=== PATIENT | female | born 1935 | race Caucasian/White ===

== ENCOUNTER → 2018-08-16 | Outpatient (REF) | payer OTHER ==
[2018-08-16 17:17] LABS: C REACTIVE PROTEIN QUANTITATIV 4.86 MG/DL (0.00-0.30); RHEUMATOID FACTOR QUANT < 10.0 IU/ML (<15.0)
[2018-08-16 17:31] LABS: VITAMIN B12 LEVEL 946 PG/ML (247-911)
[2018-08-20 00:10] LABS: ANTINUCLEAR ANTIBODIES DIRECT Negative (Negative); Lyme Disease IgG/IgM Antibodie <0.91 ISR (0.00-0.90); Lyme Disease IgM Ab Quantitati <0.80 index (0.00-0.79)
== END ==
LOC: M LAB REF 16:35
DX: R53.1 Weakness (principal); R52 Pain, unspecified
CPT/HCPCS: 82607

== ENCOUNTER 2019-01-13 17:26 | Emergency (ER) | payer MEDICARE, OTHER ==
[~2019-01-13] VITALS: Ht 149.9 cm; Wt 38.6 kg
[2019-01-13 19:39] LABS: BASO % 0.6 % (0.0-1.0); EOS # 0.1 10^3/uL (0.0-0.50); EOS % 1.2 % (0.0-3.0); HEMATOCRIT 42.2 % (36.0-47.0); HEMOGLOBIN 12.8 g/dl (12.0-15.5); LYMPH # 1.3 10^3/uL (1.5-4.5); LYMPH % 25.7 % (24.0-44.0); MEAN CORPUSCULAR HEMOGLOBIN 27.4 pg (27.0-33.0); MEAN CORPUSCULAR HGB CONC 30.3 g/dl (32.0-36.5); MEAN CORPUSCULAR VOLUME 90.4 fl (80.0-96.0); MONO # 0.5 10^3/uL (0.0-0.8); MONO % 8.9 % (0.0-5.0); NEUTROPHILS # 3.3 10^3/uL (1.8-7.7); NEUTROPHILS % 63.4 % (36.0-66.0); PLATELET COUNT, AUTOMATED 299 10^3/uL (150-450); RED BLOOD COUNT 4.67 10^6/uL (4.00-5.40); WHITE BLOOD COUNT 5.2 10^3/uL (4.0-10.0)
[2019-01-13 20:04] LABS: ALBUMIN 3.8 GM/DL (3.2-5.2); ALT/SGPT 43 U/L (12-78); BILIRUBIN,DIRECT 0.1 MG/DL (0.0-0.2); BILIRUBIN,TOTAL 0.4 MG/DL (0.2-1.0); BLOOD UREA NITROGEN 48 MG/DL (7-18); CALCIUM LEVEL 9.1 MG/DL (8.8-10.2); CARBON DIOXIDE LEVEL 23 MEQ/L (21-32); CHLORIDE LEVEL 111 MEQ/L (98-107); CREATININE FOR GFR 0.66 MG/DL (0.55-1.30); GLOMERULAR FILTRATION RATE > 60.0 (>32); GLUCOSE, FASTING 122 MG/DL (70-100); LIPASE 262 U/L (73-393); POTASSIUM SERUM 4.4 MEQ/L (3.5-5.1); SODIUM LEVEL 141 MEQ/L (136-145); TOTAL PROTEIN 7.2 GM/DL (6.4-8.2)
[2019-01-13] MEDS: NS 1,000 ML IV SCH ×2 (21:28→23:28)
[2019-01-13 23:14] VITALS: BP 140/65
--- NOTE | 2019-01-14 10:17 | REP ---
Clinical: Abdominal pain and diarrhea. Technique: Single supine view of the abdomen and pelvis. Findings: Mild chronic dextroconvex scoliosis and degenerative changes to the visualized thoracolumbar spine. The bowel gas pattern is nonspecific. No organomegaly. Scattered vascular calcifications are identified along with suspected partially calcified fibroid within the pelvis. Impression: Chronic changes as above. Nonspecific bowel gas pattern. Electronically Signed by Ricardo Daniels MD 01/14/2019 10:08 A
== END 2019-01-14 00:25 | disposition home or self-care (01) ==
LOC: M ED 17:26
DX: E86.0 Dehydration (principal); R19.7 Diarrhea, unspecified; E11.9 Type 2 diabetes mellitus without complications; I10 Essential (primary) hypertension; E78.5 Hyperlipidemia, unspecified

== ENCOUNTER 2020-12-15 16:51 | Inpatient (IN) | payer MEDICARE ==
[~2020-12-15] VITALS: Ht 152.4 cm; Wt 50.0 kg
[2020-12-15] MEDS ORDERED: LIDOCAINE 2% 5ML JELLY UROJET TOP ONE (17:15)
[2020-12-15] MEDS ORDERED: ONDANSETRON 4MG/2ML VIAL IV ONE (17:15)
[2020-12-15] MEDS ORDERED: MORPHINE 2 MG/ML 1ML VIAL (J2270) IV ONE (17:15)
[2020-12-15] MEDS: NS 1,000 ML IV SCH (17:42)
[2020-12-15 17:44] LABS: BASO % 0.3 % (0.0-1.0); EOS # 0.1 10^3/uL (0.0-0.5); LYMPH % 17.6 % (24.0-44.0); MEAN CORPUSCULAR HGB CONC 31.6 g/dl (32.0-36.5); MEAN CORPUSCULAR VOLUME 88.6 fl (80.0-96.0); MONO # 0.5 10^3/uL (0.0-0.8); MONO % 7.7 % (2.0-8.0); NEUTROPHILS # 4.2 10^3/uL (1.5-8.5); PLATELET COUNT, AUTOMATED 261 10^3/uL (150-450); RED BLOOD COUNT 4.29 10^6/uL (4.00-5.40); WHITE BLOOD COUNT 5.9 10^3/uL (4.0-10.0)
[2020-12-15 17:54] LABS: INR 0.9; PROTHROMBIN TIME 12.3 SECONDS (12.5-14.3)
[2020-12-15] MEDS ORDERED: OMEP40CA97 PO (17:57)
[2020-12-15] MEDS ORDERED: METF-839 PO (17:57)
[2020-12-15] MEDS ORDERED: K-TA10TA2 PO (17:57)
--- NOTE | 2020-12-15 18:10 | REP ---
INDICATION: fall. COMPARISON: None. TECHNIQUE: AP and lateral views of the right femur. FINDINGS: AP and lateral views of the right femur demonstrate normal bones, joints, and soft tissues. No fracture or subluxation is seen. No opaque foreign body noted. IMPRESSION: Negative right femur series. <Electronically signed by Dylan Chatman > 12/15/20 [id number]
--- NOTE | 2020-12-15 18:12 | REP ---
INDICATION: INCLUDE PELVIS TRAUMA. COMPARISON: Comparison KUB study January 13, 2019.. TECHNIQUE: AP view of the pelvis and AP and cross-table lateral views of the right hip are presented. FINDINGS: The bony pelvic ring is intact. There is mild degenerative sclerosis in the symphysis unchanged. No sacral or pelvic fracture is appreciated. The left hip appears intact. Views of the right hip demonstrate a slightly impacted cervical neck fracture of the right proximal femur. IMPRESSION: Impacted right femoral neck fracture. No pelvic fracture seen. <Electronically signed by Dylan Chatman > 12/15/20 1964
--- NOTE | 2020-12-15 18:13 | REP ---
INDICATION: PREOP. COMPARISON: Comparison chest x-ray January 10, 2008. TECHNIQUE: Portable supine AP view of the chest.. FINDINGS: The lungs are well inflated and free of infiltrate. Pleural angles are sharp. Heart size is normal. Pulmonary vasculature is not increased. Monitoring electrodes are seen. There is a zone of mild linear platelike atelectasis in the left base. The thoracic aorta is somewhat tortuous. No acute bony abnormality. IMPRESSION: Mild platelike atelectasis left base. Otherwise no acute disease.. <Electronically signed by Dylan Chatman > 12/15/20 [id number]
[2020-12-15 18:14] LABS: BLOOD UREA NITROGEN 30 MG/DL (7-18); CARBON DIOXIDE LEVEL 29 MEQ/L (21-32); CHLORIDE LEVEL 105 MEQ/L (98-107); CK-MB VALUE MASS 1.5 NG/ML (<3.6); CPK CREATINE PHOSPHOKINASE 52 U/L (26-192); CREATININE FOR GFR 0.58 MG/DL (0.55-1.30); GLOMERULAR FILTRATION RATE > 60.0 (>32); GLUCOSE, FASTING 153 MG/DL (70-100); MB/CK RELATIVE INDEX 2.88 (< OR =4); POTASSIUM SERUM 3.9 MEQ/L (3.5-5.1); SODIUM LEVEL 140 MEQ/L (136-145)
--- NOTE | 2020-12-15 18:15 | REP ---
INDICATION: distention. COMPARISON: Comparison KUB January 13, 2019.. TECHNIQUE: AP supine view of the abdomen and pelvis. FINDINGS: A impacted fracture of the right femoral neck is noted. No pelvic or lumbar spine fracture is seen. There is a mild dextroconvex lumbar spine curvature unchanged. Degenerative disc and facet changes are noted in the lumbar spine. No other acute bony abnormality is seen. There is air and stool in a nondistended colon. No evidence of bowel obstruction is seen. Flank stripes are intact. Psoas margins are symmetric. There are calcifications in the left central pelvis consistent with calcified uterine fibroids. These are unchanged. IMPRESSION: Unremarkable bowel gas pattern. No evidence of obstruction or mass. Right femoral neck fracture with impaction <Electronically signed by Dylan Chatman > 12/15/20 [id number]
[2020-12-15] MEDS ORDERED: METOPROLOL TART 50 MG TAB PO ONE (18:35)
[2020-12-15] MEDS ORDERED: SITA50TAB PO (18:37)
[2020-12-15] MEDS ORDERED: ARTH650T23 PO (18:37)
[2020-12-15] MEDS ORDERED: ASPI81TA26 PO (18:37)
[2020-12-15] MEDS ORDERED: LOSA50TA88 PO (18:37)
[2020-12-15] MEDS ORDERED: METO50TA7 PO (18:37)
[2020-12-15] MEDS ORDERED: VOLT1GEL15 TOP (18:52)
[2020-12-15] MEDS ORDERED: LABETALOL 100MG/20ML VIAL IV STA (19:29)
[2020-12-15] MEDS ORDERED: MORPHINE 2 MG/ML 1ML VIAL (J2270) IV PRN (19:30)
[2020-12-15 20:46] LABS: RSV AMPLIFICATION NEGATIVE (NEGATIVE)
[2020-12-15] MEDS ORDERED: MOM 30ML SUSPENSION UDC PO PRN (21:10)
[2020-12-15] MEDS ORDERED: ACETAMINOPHEN TAB 650MG DOSE (2X325MG) PO PRN (21:10)
[2020-12-15] MEDS ORDERED: MAALOX 30 ML SUSP *UDC PO PRN (21:10)
--- NOTE | 2020-12-15 21:34 | HPEPDOC ---
[facility] Medical History & Physical Date of Admission Dec 15, 2020 Date of Service: Dec 15, 2020 History and Physical CHIEF COMPLAINT: Right hip pain HISTORY OF PRESENT ILLNESS: 85-year-old female history of hypertension and diabetes who had a mechanical fall at home tripping down stairs was found to have a right hip fracture. Orthopedic surgery was consulted from the emergency department who will see the patient in the morning. Patient complains of right hip discomfort and cannot move very well she otherwise feels well denying shortness of breath or chest pain no abdominal pain no nausea or vomiting. Daughter at bedside Yari [phone]. At baseline patient does not require walking assistive devices. PAST MEDICAL/SURGICAL HISTORY: Coq-iokgvyb-jxeqidqau diabetes Hypertension Cholecystectomy SOCIAL HISTORY: Denies alcohol use Denies tobacco use Denies illicit drug use Lives in senior assisted housing FAMILY HISTORY: Reviewed and none contributory to this admission ALLERGIES: Please see below. REVIEW OF SYSTEMS: 10 point review of systems complete all negative otherwise stated in HPI HOME MEDICATIONS: Please see below. PHYSICAL EXAMINATION: Constitutional: Awake and alert, in no apparent distress ENT: Sclera are clear. Mucosa is moist. Respiratory: Lungs CTA bilaterally. No respiratory distress. Cardiovascular: RRR S1 and S2 are normal Gastrointestinal: Abdomen is soft, non distended, non tender, BS present. Musculoskeletal: No lower extremity edema. Limited motion at hips. Right hip te nderness. Neurologic: No focal neurological deficit. Mental Status: A&O x3, normal affect Skin: Warm, dry LABORATORY DATA: See below. IMAGING: See chart MICROBIOLOGY: Please see below. ASSESSMENT/PLAN 85-year-old female history of hypertension and diabetes who had a mechanical fall at home tripping down stairs was found to have a right hip fracture. Orthopedic surgery was consulted from the emergency department who will see the patient in the morning. # Right hip fracture: Resulting from mechanical fall. Evaluation by orthopedic surgery in the morning. PT/OT after. Pain control Tylenol, morphine IV PRN for breakthrough. Fall precautions. # Hypertension: Continue home meds. Monitor and titrate # DM: ISS. Frequent Accu-Cheks. Hypoglycemic precautions. # DVT prophylaxis: Heparin A Yousef Hospitalist Vital Signs Vital Signs Date Time Temp Pulse Resp B/P (MAP) Pulse Ox O2 Delivery O2 Flow Rate FiO2 12/15/20 20:29 16 12/15/20 20:16 84 98 12/15/20 20:01 Nasal Cannula 2.0 12/15/20 20:00 167/81 (109) 12/15/20 17:42 95 12/15/20 17:12 97.7 Laboratory Data Labs 24H Laboratory Tests 2 12/15/20 17:29: Immature Granulocyte % (Auto) 1.4, Neutrophils (%) (Auto) 71.0H, Lymphocytes (%) (Auto) 17.6L, Monocytes (%) (Auto) 7.7, Eosinophils (%) (Auto) 2.0, Basophils (%) (Auto) 0.3, Neutrophils # (Auto) 4.2, Lymphocytes # (Auto) 1.0L, Monocytes # (Auto) 0.5, Eosinophils # (Auto) 0.1, Basophils # (Auto) 0.0, Nucleated Red Blood Cells % (auto) 0.0, Prothrombin Time 12.3, Prothromb Time International Ratio 0.90, Anion Gap 6L, Glomerular Filtration Rate > 60.0, Calcium Level 9.0, Total Creatine Kinase 52, Creatine Kinase MB 1.5, Creatine Kinase MB Relative Index 2.88 12/15/20 19:58: Coronavirus (COVID-19)(PCR) NEGATIVE, Influenza Type A (RT-PCR) NEGATIVE, Influenza Type B (RT-PCR) NEGATIVE, Respiratory Syncytial Virus (PCR) NEGATIVE CBC/BMP Laboratory Tests 12/15/20 17:29 Home Medications Scheduled Aspirin (Aspirin EC) 81 Mg Tablet.dr, 81 MG PO DAILY Losartan Potassium (Losartan Potassium) 50 Mg Tablet, 50 MG PO DAILY Metformin HCl (Metformin HCl) 500 Mg Tablet, 500 MG PO BID Metoprolol Tartrate (Metoprolol Tartrate) 50 Mg Tablet, 50 MG PO Q8H Omeprazole (Omeprazole) 40 Mg Capsule.dr, 40 MG PO DAILY Potassium Chloride (K-Tab ER) 10 Meq Tablet.er, 10 MEQ PO BID Sitagliptin (Januvia) 50 Mg Tablet, 50 MG PO DAILY Scheduled PRN Acetaminophen (Arthritis Pain) 650 Mg Tablet.er, 650 MG PO Q8H PRN for PAIN Diclofenac Sodium (Voltaren) 100 Gm Gel..gram., 1 GRAM TOP QID PRN for PAIN APPLY TO SHOULDER PRN Allergies Coded Allergies: No Known Allergies (Unverified , 01/13/19) A-FIB/CHADSVASC A-FIB History Current/History of A-Fib/PAF?: No YOUSEF,TRICIA Williamson MD Dec 15, 2020 21:34
[2020-12-15] MEDS ORDERED: GLUCAGON INJ 1MG VIAL SC PRN (21:35)
[2020-12-15] MEDS ORDERED: GLUCOSE 4GM CHEW TABLET PO PRN (21:35)
[2020-12-15] MEDS ORDERED: DEXTROSE 50% 50 ML SYRINGE IV PRN (21:35)
[2020-12-15 22:30] VITALS: BP 183/91
[2020-12-15] MEDS: DOCUSATE SODIUM 100MG CAPSULE PO SCH (22:57)
[2020-12-15] MEDS: POTASSIUM CHLORIDE 10 MEQ SR TABLET PO SCH (22:58)
[2020-12-16] VITALS (9 sets, daily range): BP systolic 148–201; BP diastolic 75–100
[2020-12-16] MEDS: HumaLOG INSULIN (NovoLOG) PER UNIT SC SCH ×5 (00:20→22:14)
[2020-12-16] MEDS: NS 1,000 ML IV SCH ×2 (03:09→13:04)
--- NOTE | 2020-12-16 03:34 | ECGEPIP ---
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
[2020-12-16] MEDS ORDERED: MORPHINE 2 MG/ML 1ML VIAL (J2270) IV ONE (03:35)
[2020-12-16] MEDS ORDERED: PERCOCET 5MG/325MG TAB PO PRN ×3 (03:35→20:45)
[2020-12-16] MEDS: METOPROLOL TART 50 MG TAB PO SCH ×3 (05:39→22:00)
[2020-12-16 07:07] LABS: HEMATOCRIT 34.9 % (36.0-47.0); HEMOGLOBIN 10.7 g/dl (12.0-15.5); MEAN CORPUSCULAR HEMOGLOBIN 27.1 pg (27.0-33.0); MEAN CORPUSCULAR HGB CONC 30.7 g/dl (32.0-36.5); MEAN CORPUSCULAR VOLUME 88.4 fl (80.0-96.0); PLATELET COUNT, AUTOMATED 218 10^3/uL (150-450); RED BLOOD COUNT 3.95 10^6/uL (4.00-5.40); WHITE BLOOD COUNT 6.6 10^3/uL (4.0-10.0)
[2020-12-16 07:33] LABS: ALBUMIN 2.9 GM/DL (3.2-5.2); ALT/SGPT 32 U/L (12-78); BILIRUBIN,TOTAL 0.4 MG/DL (0.2-1.0); BLOOD UREA NITROGEN 17 MG/DL (7-18); CALCIUM LEVEL 8.3 MG/DL (8.8-10.2); CARBON DIOXIDE LEVEL 30 MEQ/L (21-32); CHLORIDE LEVEL 107 MEQ/L (98-107); CREATININE FOR GFR 0.53 MG/DL (0.55-1.30); GLOMERULAR FILTRATION RATE > 60.0 (>32); GLUCOSE, FASTING 151 MG/DL (70-100); MAGNESIUM LEVEL 1.9 MG/DL (1.8-2.4); POTASSIUM SERUM 4.1 MEQ/L (3.5-5.1); SODIUM LEVEL 141 MEQ/L (136-145); TOTAL PROTEIN 6.1 GM/DL (6.4-8.2)
--- NOTE | 2020-12-16 08:38 | IPNPDOC ---
Subjective Date Seen The patient was seen on 12/16/20. Subjective Chief Complaint/HPI Subjective: Patient was seen at the side alert, oriented 3. Patient states that she has pain on the right hip experiencing some numbness associated with it. Objective: PHYSICAL EXAMINATION: Constitutional: Awake and alert, in no apparent distress ENT: Sclera are clear. Mucosa is moist. Respiratory: Lungs CTA bilaterally. No respiratory distress. Cardiovascular: RRR S1 and S2 are normal Gastrointestinal: Abdomen is soft, non distended, non tender, BS present. Musculoskeletal: No lower extremity edema. Limited motion at hips. Right hip tenderness Neurologic: No focal neurological deficit. Mental Status: A&O x3, normal affect Skin: Warm, dry LABORATORY DATA: See below. IMAGING: See chart MICROBIOLOGY: Please see below. ASSESSMENT & PLAN: 85-year-old female history of hypertension and diabetes who had a mechanical fal l at home tripping down stairs was found to have a right hip fracture. Orthopedic surgery was consulted from the emergency department who will see the patient in the morning. # Right hip fracture sustained from mechanical fall - Ortho evaluation and surgery this morning - surgery scheduled for 2pm today - Pain control Tylenol, morphine IV PRN for breakthrough - Fall precautions # Hypertension -Continue home meds. Monitor and titrate # DM -ISS. Frequent Accu-Checks. Hypoglycemic precautions DVT prophylaxis: Heparin GI ppx: none Fluids: none Diet: NPO for surgery Code status: Full Disposition: surgery per ortho at 2pm today. And PT/OT eval and treat after surgery. Will need ARU screen and placement. Assessment /Plan Plan/VTE VTE Prophylaxis Ordered?: Yes (scd teds) VS, I&O, 24H, Fishbone Vital Signs/I&O Vital Signs Date Time Temp Pulse Resp B/P (MAP) Pulse Ox O2 Delivery O2 Flow Rate FiO2 12/16/20 06:00 98.1 76 17 169/77 (107) 98 Nasal Cannula 2.0 12/15/20 17:42 95 I&O- Last 24 Hours up to 6 AM 12/16/20 06:00 Intake Total 500 ml Output Total 1150 ml Balance -650 ml Laboratory Data 24H LABS Laboratory Tests 2 12/15/20 17:29: Immature Granulocyte % (Auto) 1.4, Neutrophils (%) (Auto) 71.0H, Lymphocytes (%) (Auto) 17.6L, Monocytes (%) (Auto) 7.7, Eosinophils (%) (Auto) 2.0, Basophils (%) (Auto) 0.3, Neutrophils # (Auto) 4.2, Lymphocytes # (Auto) 1.0L, Monocytes # (Auto) 0.5, Eosinophils # (Auto) 0.1, Basophils # (Auto) 0.0, Nucleated Red Blood Cells % (auto) 0.0, Prothrombin Time 12.3, Prothromb Time International Ratio 0.90, Anion Gap 6L, Glomerular Filtration Rate > 60.0, Calcium Level 9.0, Total Creatine Kinase 52, Creatine Kinase MB 1.5, Creatine Kinase MB Relative Index 2.88 12/15/20 19:58: Coronavirus (COVID-19)(PCR) NEGATIVE, Influenza Type A (RT-PCR) NEGATIVE, Influenza Type B (RT-PCR) NEGATIVE, Respiratory Syncytial Virus (PCR) NEGATIVE 12/16/20 00:12: Bedside Glucose (Misc Panel) 140H 12/16/20 05:40: Bedside Glucose (Misc Panel) 138H 12/16/20 06:28: Nucleated Red Blood Cells % (auto) 0.0, Anion Gap 4L, Glomerular Filtration Rate > 60.0, Calcium Level 8.3L, Magnesium Level 1.9, Total Bilirubin 0.4, Aspartate Amino Transf (AST/SGOT) 24, Alanine Aminotransferase (ALT/SGPT) 32, Alkaline Phosphatase 79, Total Protein 6.1L, Albumin 2.9L, Albumin/Globulin Ratio 0.9L CBC/BMP Laboratory Tests 12/15/20 17:29 12/16/20 06:28 GME ATTESTATION GME ATTESTATION My faculty preceptor for this patient encounter was physically present during the encounter and was fully available. All aspects of the patient interview, exa mination, medical decision making process, and medical care plan development were reviewed and approved by the faculty preceptor. The faculty preceptor is aware and concurs with the plan as stated in the body of this note and will attest to such by his/her cosignature. ATTENDING NOTE The above note was written by Dr. Michelle Mcqueen DO. I, Shama Sebastian, have independently examined this patient and performed my own physical exam, as well as reviewed the documentation and edited where necessary. I have discussed in detail with the resident / student the findings and plan of treatment as documented by the resident / student and edited their note. I agree with their findings and treatment plan and have edited their documentation. I will continue to follow the patient during this hospital stay. Discussed with patient about her prior level of activity before fall - Had mentioned that she has gone up and down flights of stairs without any difficulty - No prior histories of heart attacks or strokes - Is independent at baseline without any assistive devices Patient is medically optimized at low risk for a low risk procedure Michelle Mcqueen DO Dec 16, 2020 07:44 SHAMA SEBASTIAN MD Dec 16, 2020 08:37
[2020-12-16] MEDS: ASPIRIN 81MG ENTERIC TABLET PO SCH (09:00)
[2020-12-16] MEDS ORDERED: HEPARIN SOD (PORCINE) 5000UNITS/ML 1ML VIAL/SYRINGE SC SCH (09:00)
[2020-12-16] MEDS: DOCUSATE SODIUM 100MG CAPSULE PO SCH (09:52)
[2020-12-16] MEDS: POTASSIUM CHLORIDE 10 MEQ SR TABLET PO SCH ×2 (09:53→21:00)
[2020-12-16] MEDS: OMEPRAZOLE 20 MG CAP PO SCH (09:53)
[2020-12-16] MEDS: LOSARTAN 50MG TABLET PO SCH (09:56)
--- NOTE | 2020-12-16 12:43 | CR.PDOC ---
General Date of Consultation: Dec 15, 2020 Referring Provider: DIEGO SEBASTIAN MD Attending Physician: DIEGO SEBASTIAN MD Consultation REASON FOR CONSULTATION/CHIEF COMPLAINT: Right hip subcapital fracture. HISTORY OF PRESENT ILLNESS: The patient reportedly had a mechanical fall at home. She states that she was standing outside of a door when a contractor, who is doing renovations at her apartment open the door causing her to fall. She had complaints of right hip pain. The patient denies any previous hip pain and was not utilizing any ambulatory aids prior to the fall. ALLERGIES: Please see below. HOME MEDICATIONS: Please see below. PAST MEDICAL HISTORY: 1., Diabetes. 2., Hypertension. PAST SURGICAL HISTORY: 1., Cholecystectomy FAMILY HISTORY: Noncontributory SOCIAL HISTORY: Marital status and/or living arrangements: Lives in senior assisted housing apartment Children: Daughter Yari. At [phone] Tobacco use: Denies ETOH: Denies Illicit drug use: Denies REVIEW OF SYSTEMS: Negative aside from those described in the HPI PHYSICAL EXAMINATION: VITAL SIGNS: Please see below. The patient is alert and oriented to person, place and time. Constitutional: The patient appears their stated age. They are casually dressing, comfortable and cooperative, in no acute distress. Psychiatric: Appropriate affect with good eye contact. Ambulation: Nonambulatory secondary to fracture of right hip Head, ears, eyes, nose, and throat: Head is normocephalic, atraumatic. Eyes: Pupils equal. Sclerae anicteric. Mouth: Not assessed due to covert masking Neck: Supple with full range of motion. Skin: Clean, dry, and intact with no abrasions or ulcerations. Lungs: Breathing is unlabored with symmetric chest expansion on inspiration. Cardiovascular: Palpable posterior tibialis pulses, bilaterally. Neurologic: 5/5 strength, bilaterally to the tibialis anterior, EHL and gastrocsoleus. Sensation is intact to light touch in the L4-S1 dermatome distribution, bilaterally Musculoskeletal: The right lower extremity is held in a shortened and externally rotated position consistent with the right hip fracture. The physical examination was limited secondary to pain and discomfort. X-ray: X-ray imaging was independently reviewed by myself. This demonstrated the right hip with a subcapital fracture, completely displaced. LABORATORY DATA: Please see below. ASSESSMENT/PLAN: 1. Patient demonstrates a right hip subcapital fracture. The recommended treatment for this would be a hemiarthroplasty procedure. Given the fact that the patient does not have any significant signs or history of osteophytic change. The right hip. I spent greater than 30 minutes discussing the risks and benefits of the procedure with the patient and I also spoke to the patient's daughter, twice on the phone during this period of time. The patient was quite anxious about moving forward with surgery. However, after discussion of the risks and benefits, she has consented to the right hip hemiarthroplasty procedure, as well as a blood transfusion if needed. The risks of the procedure include but are not limited to infection, blood loss, periprosthetic fracture, need for additional surgery, damage to local soft tissues tissue structures, DVT, or PE, need for possible use of ambulatory aids in the future due to d econditioning. The risks of the procedure involved anesthetic risks which include but are not limited to, heart attack, stroke and . Again, the patient did discuss the procedure with her daughter and decided that she did not continue in the position where she was in pain and unable to mobilize and thus consented for surgery. The patient has been medically optimized for surgery. She has been booked for right hip hemiarthroplasty which will hopefully done this afternoon barring any emergency procedures. Vital Signs/I&O Vital Signs Date Time Temp Pulse Resp B/P (MAP) Pulse Ox O2 Delivery O2 Flow Rate FiO2 12/16/20 10:53 2.0 12/16/20 09:56 156/76 12/16/20 08:31 97.2 70 14 99 Nasal Cannula 12/15/20 17:42 95 I&O- Last 24 Hours up to 6 AM 12/16/20 05:59 Intake Total 500 ml Output Total 900 ml Balance -400 ml Laboratory Data Labs 24H Laboratory Tests 2 12/15/20 17:29: Immature Granulocyte % (Auto) 1.4, Neutrophils (%) (Auto) 71.0H, Lymphocytes (%) (Auto) 17.6L, Monocytes (%) (Auto) 7.7, Eosinophils (%) (Auto) 2.0, Basophils (%) (Auto) 0.3, Neutrophils # (Auto) 4.2, Lymphocytes # (Auto) 1.0L, Monocytes # (Auto) 0.5, Eosinophils # (Auto) 0.1, Basophils # (Auto) 0.0, Nucleated Red Blood Cells % (auto) 0.0, Prothrombin Time 12.3, Prothromb Time International Ratio 0.90, Anion Gap 6L, Glomerular Filtration Rate > 60.0, Calcium Level 9.0, Total Creatine Kinase 52, Creatine Kinase MB 1.5, Creatine Kinase MB Relative Index 2.88 12/15/20 19:58: Coronavirus (COVID-19)(PCR) NEGATIVE, Influenza Type A (RT-PCR) NEGATIVE, Influenza Type B (RT-PCR) NEGATIVE, Respiratory Syncytial Virus (PCR) NEGATIVE 12/16/20 00:12: Bedside Glucose (Misc Panel) 140H 12/16/20 05:40: Bedside Glucose (Misc Panel) 138H 12/16/20 06:28: Nucleated Red Blood Cells % (auto) 0.0, Anion Gap 4L, Glomerular Filtration Rate > 60.0, Calcium Level 8.3L, Magnesium Level 1.9, Total Bilirubin 0.4, Aspartate Amino Transf (AST/SGOT) 24, Alanine Aminotransferase (ALT/SGPT) 32, Alkaline Phosphatase 79, Total Protein 6.1L, Albumin 2.9L, Albumin/Globulin Ratio 0.9L CBC/BMP Laboratory Tests 12/15/20 17:29 12/16/20 06:28 Allergies Coded Allergies: No Known Allergies (Unverified , 01/13/19) Home Medications Scheduled Aspirin (Aspirin EC) 81 Mg Tablet.dr, 81 MG PO DAILY, (Reported) Insulin Human Lispro (Humalog) 100 Unit/1 Ml Vial, 0 UNITS SC ACHS for 30 Days, #30 Losartan Potassium (Losartan Potassium) 50 Mg Tablet, 50 MG PO DAILY, (Reported) Metoprolol Tartrate (Metoprolol Tartrate) 50 Mg Tablet, 50 MG PO Q8H, (Reported) Omeprazole (Omeprazole) 40 Mg Capsule.dr, 40 MG PO DAILY, (Reported) Potassium Chloride (K-Tab ER) 10 Meq Tablet.er, 10 MEQ PO BID, (Reported) Rivaroxaban (Xarelto) 10 Mg Tablet, 10 MG PO DAILY@18 for 30 Days, #30 Scheduled PRN Acetaminophen (Arthritis Pain) 650 Mg Tablet.er, 650 MG PO Q8H PRN for PAIN, (Reported) Diclofenac Sodium (Voltaren) 100 Gm Gel..gram., 1 GRAM TOP QID PRN for PAIN, (Reported) APPLY TO SHOULDER PRN LETTY WILKES MD Dec 16, 2020 12:43
[2020-12-16] MEDS ORDERED: ceFAZolin 2 GM/D5W 50 ML IV BAG (J0690 PER 500MG) As Ordered ONE (17:17)
[2020-12-16] MEDS ORDERED: TRANEXAMIC ACID 100 MG/ML 10ML VIAL As Ordered ONE (17:18)
[2020-12-16] MEDS ORDERED: fentaNYL 100 MCG/2 ML INJECTION (J3010) As Ordered ONE (17:20)
[2020-12-16] MEDS ORDERED: KETAMINE HCL 200 MG/20 ML VIAL As Ordered ONE (17:20)
[2020-12-16] MEDS ORDERED: LIDOCAINE 2% 100MG/5ML SDV (FOR ANES.) As Ordered ONE (17:20)
[2020-12-16] MEDS ORDERED: propofoL 200 MG/20 ML VIAL As Ordered ONE (17:20)
[2020-12-16] MEDS ORDERED: MIDAZOLAM INJ 2MG/2ML VIAL (J2250 PER 1MG) As Ordered ONE (17:20)
[2020-12-16] MEDS ORDERED: ONDANSETRON 4MG/2ML VIAL As Ordered ONE (17:20)
[2020-12-16] MEDS ORDERED: BUPIVACAINE/EPIN 0.5% 30 ML VIAL As Ordered ONE (18:03)
[2020-12-16] MEDS ORDERED: ePHEDrine SULFATE 25 MG/5 ML(5MG/ML) SYRINGE As Ordered ONE (18:19)
[2020-12-16] MEDS ORDERED: LR 1,000 ML IV SCH ×2 (20:45→20:55)
[2020-12-16] MEDS ORDERED: ONDANSETRON 4MG/2ML VIAL IV PRN ×2 (20:45→20:55)
[2020-12-16] MEDS ORDERED: METOCLOPRAMIDE INJ 10MG/2ML VIAL (J2765 PER 1) IV PRN (20:45)
[2020-12-16] MEDS ORDERED: fentaNYL 100 MCG/2 ML INJECTION (J3010) IV PRN (20:45)
[2020-12-16] MEDS ORDERED: oxyCODONE 5MG TAB PO PRN ×2 (20:55)
[2020-12-16] MEDS: SENOKOT S TAB PO SCH (21:00)
--- NOTE | 2020-12-16 21:11 | ROOPDOC ---
[facility] Report Of Operation Report of Operation DATE OF PROCEDURE: 12/16/20 PREPROCEDURE DIAGNOSES: Right hip femoral neck fracture. POSTPROCEDURE DIAGNOSES: Right hip femoral neck fracture. PROCEDURE: Right hip hemiarthroplasty. SURGEON: Van Wilkes MD TIE UP WORKER: Nika Caicedo CST ANESTHESIA: Spinal. ESTIMATED BLOOD LOSS: Approximately less than 100 mL mL. COMPLICATIONS: No known complications. Components: [place] accolade II stem size #2 with 132 angle. Size 42 monoblock femoral head with +4 neck insert PROCEDURE NOTE: The patient was diagnosed with a right hip hemiarthroplasty fr [facility]. I spoke with the patient and her daughter this morning and the patient signed consent for the right hip hemiarthroplasty as well as blood transfusion. Prior to surgery, the anesthesiologist had to speak to the patient's daughter regarding consent for anesthesia. Because the patient was having an episode of confusion, which the daughter confirms she sometimes had in the evenings as reported by the anesthesiologist. The nursing staff asked me to confirm the consent with the patient's daughter, which had been signed by the patient earlier today. This was done and witnessed. DESCRIPTION OF PROCEDURE: The patient was seen in the preoperative area and the right hip was marked. The patient is brought to the operating room and after a surgical pause, a spinal anesthetic was completed. The patient was then placed in the left lateral decubitus position on the bed with appropriate padding and an axillary roll utilizing the [facility] frame positioner. The right lower extremity was prepped with chlorhexidine scrub followed by 2 alcohol 4 x 4 soaked pads and a urgent peroxide pad. 2. Chlorhexidine cleanses with the prepacked ones were then carried out. The right lower extremity was then prepped and draped in the normal sterile fashion for an anterior lateral modified Chow approach. The patient received 2 g of Ancef IV prior to incision as well as 1 g of IV tranexamic acid. A surgical safety checklist, and possible was carried out. The site of the surgery. Incision was marked and the incision was carried out after the surgical safety checklist. This was carried down through skin and subcutaneous tissue laterally, centered over the proximal portion of the GT. Once the fascia was reached. A Peoples was used to clear some of the fat off of the fascia. The cautery was used to make a 1 cm incision through the fascia. The leg was abducted and cautery and Russo scissors were used to split the fascia. The hip greater trochanter and abductors were then visualized. A small Charnley was placed help with retraction. The skin incision was lengthened as appropriate for appropriate visualization. Electrocautery was used for hemostasis throughout the procedure. The lateral Chow approach was continued through a split of the gluteus medius, minimus and capsule in one continuous layer. This was carried out until appropriate visualization of the fracture site was noted. Retractors were placed on either side of the femoral neck and the sagittal saw was used to freshen up the neck cut approximately 1 cm above the lesser trochanteric region. The leg was externally rotated and the proximal capsule was split avoiding injury to the acetabular labrum. The femoral head was identified. A corkscrew was introduced into the femoral head, just using arm strength without a mallet. After a few attempts, I was able to remove the femoral head in one piece. This was sized to be an approximate 41 or 42 mm in diameter. The acetabulum was irrigated with normal sterile saline and a rongeur was used to remove any soft tissue containing bony fragments. Size 41 and 42 mm diameter heads were tested and the 42 mm diameter head appeared to have greater fit and suction within the acetabulum. The femur was then externally rotated with the foot placed in the bag to allow access to the proximal greater trochanteric region. Electrocautery was utilized to remove some soft tissue from the posterior lateral aspect of the greater trochanter and the washer as well as a box osteotome were used to open up the femoral canal. The canal finder device was advanced on hand power. A size 0 broach was then placed. The broach was used to remove the posterior lateral region of the greater trochanter. The broach found its appropriate channel and version as it was advanced gently. Broaching was continued up to a size 2 femoral stem. Trialing with the 132 neck was utilized as the patient's measured on x-ray, albeit with some external rotation was approximately 139. This was trialed with the standard neck length. There appeared to be some shock. So this was increased to the +4 neck length. The +8 neck length was also trialed, however, this was too tight and unable to be reduced. The +4 neck length was chosen and trialed. This appeared to provide the patient with good stability. With all of the retracting devices removed. There was no significant shuck and the patient demonstrated a full stable range of motion. There is no obvious instability except with the leg in extension and extreme external rotation. This maneuver was used to dislocate the hip with the assistance of a bone hook. The trial components were removed. The acetabulum was again irrigated. The accolade size 2 stem was impacted without any obvious signs of femoral fracture or splitting or otherwise. The +4 femoral head monoblock head was trialed again and this was found to have a good fit. The final component, +4 femoral neck was impacted, followed by impaction of the monoblock head onto this neck component. The femoral neck was irrigated and dried prior to impaction of the neck and head prostheses. The hip was reduced and found to be in good stable condition. The leg lengths appeared to be appropriate based on anatomic landmarks. 2 g of topical tranexamic acid was introduced into the wound with the addition of saline and Betadine mixture and allowed to sit for 3 minutes. Approximately 30 mL of 0.5% Marcaine with epinephrine was then injected into the soft tissues and posterior capsular region. The wound was then irrigated after the 3 minutes soak. Wound closure began with the capsule which was closed with #1 Vicryl. The minimus and medius were then closed with interrupted #1 Vicryl followed by a 0 strata fix suture. The fascia was then closed with interrupted #1 Vicryl followed by a running 0 strata fix suture. The wound was irrigated with normal sterile saline between layers. The skin and subcutaneous tissue was closed with interrupted #1 undyed Vicryl followed by a running 2. 0 Vicryl and a running 3.0 antibacterial Monocryl suture. Steri-Strips were then placed followed by an OptiFoam dressing. The patient tolerated the procedure well. Her anesthetic was reversed and she was transferred to her bed and taken to the recovery room where a low set AP pelvis x-ray was completed. This demonstrated that the right hip hemiarthroplasty was in position with relatively appropriately matched leg lengths. The patient will likely require rehabilitation. The x-ray imaging did not demonstrate any obvious signs of periprosthetic fracture. Otherwise, she may be weightbearing as tolerated. She is to avoid external rotation of her foot and I have asked that some pillows be placed to the right side lateral side of her leg to avoid excess external rotation. She should also have a pillow between her knees to avoid crossing her legs. She'll be evaluated by physical therapy and reassess by the hospitalist team postoperatively. She'll be followed up in the office for her 2 week postoperative appointment with repeat x-ray imaging. Thank you very much for referring this patient to my care, This document contains text that was generated through computerized voice- recognition software. Despite it being proofread, undetected computer-generated errors may exist. Please contact our office at [phone] if any clarification or correction is required. VAN WILKES MD Dec 16, 2020 21:11
--- NOTE | 2020-12-16 21:26 | REPVR ---
PROCEDURE INFORMATION: Exam: XR Pelvis Exam date and time: 12/16/2020 8:44 PM Age: 85 years old Clinical indication: Other: S/P right hip hemiarthoplasty TECHNIQUE: Imaging protocol: XR pelvis. Views: 1 or 2 view. COMPARISON: CO Hip,AP,LAT to include Pelvis RIGHT 12/15/2020 5:27 PM FINDINGS: Bones/joints: Right hip arthroplasty in expected location. Normal alignment. Degenerative changes in the left hip and pelvis. No displaced fracture. Soft tissues: Soft tissue swelling and subcutaneous emphysema in the right hip. IMPRESSION: Normal alignment following right hip arthroplasty. Electronically signed by: John Licea On 12/16/2020 21:26:36 PM
[2020-12-17] MEDS ORDERED: diphenhydrAMINE 50MG/ML VIAL (J1200) IM PRN
[2020-12-17] MEDS ORDERED: EPINEPHrine INJ 1 MG/ML 1ML AMP IM PRN
[2020-12-17] MEDS ORDERED: UNRESOLVED CLARIFICATION ENTRY XX SCH (00:01)
[2020-12-17 00:58] VITALS: BP 188/98
[2020-12-17] MEDS: METOPROLOL TART 50 MG TAB PO SCH ×4 (01:34→21:14)
[2020-12-17] MEDS: ceFAZolin SOD 2 GM in IV 1 EA IV SCH ×2 (01:36→10:18)
[2020-12-17 06:28] VITALS: BP 198/88
[2020-12-17 06:39] LABS: HEMATOCRIT 37.4 % (36.0-47.0); HEMOGLOBIN 11.6 g/dl (12.0-15.5); MEAN CORPUSCULAR HEMOGLOBIN 27.5 pg (27.0-33.0); MEAN CORPUSCULAR VOLUME 88.6 fl (80.0-96.0); PLATELET COUNT, AUTOMATED 302 10^3/uL (150-450); RED BLOOD COUNT 4.22 10^6/uL (4.00-5.40); WHITE BLOOD COUNT 9.6 10^3/uL (4.0-10.0)
[2020-12-17] MEDS: LOSARTAN 50MG TABLET PO SCH (06:53)
[2020-12-17 06:57] LABS: BLOOD UREA NITROGEN 11 MG/DL (7-18); CALCIUM LEVEL 8.9 MG/DL (8.8-10.2); CARBON DIOXIDE LEVEL 28 MEQ/L (21-32); CHLORIDE LEVEL 102 MEQ/L (98-107); CREATININE FOR GFR 0.54 MG/DL (0.55-1.30); GLOMERULAR FILTRATION RATE > 60.0 (>32); GLUCOSE, FASTING 188 MG/DL (70-100); POTASSIUM SERUM 3.6 MEQ/L (3.5-5.1); SODIUM LEVEL 137 MEQ/L (136-145)
[2020-12-17 07:00] VITALS: BP 185/99
--- NOTE | 2020-12-17 08:17 | IPNPDOC ---
Text Note Date of Service The patient was seen on 12/17/20. NOTE The patient was seen this morning postop day 1 from a right hip hemiarthropla sty. The patient did not appear to be in any significant distress or pain. She was sitting upright at the bedside eating her breakfast. She did seem to be slightly confused, but not to the same degree as prior to surgery, last evening. She denies any chest pain or shortness of breath. She does state that the hip is sore, which is to be expected. On physical examination, the dressing appears to be intact with no staining to the dressing. She is able to move her right foot and ankle. She has a palpable posterior tibial pulse and she has sensation grossly intact to the right lower extremity. The patient will be progressed and assessed by physical therapy and will likely need rehabilitation. She will also be followed by the hospitalist regarding her medical issues. VS,Fishbone, I+O VS, Fishbone, I+O Laboratory Tests 12/17/20 06:05 Vital Signs Date Time Temp Pulse Resp B/P (MAP) Pulse Ox O2 Delivery O2 Flow Rate FiO2 12/17/20 07:04 18 12/17/20 07:00 185/99 (127) 12/17/20 06:30 79 12/17/20 06:28 99.4 100 Nasal Cannula 2.0 12/15/20 17:42 95 I&O- Last 24 Hours up to 6 AM 12/17/20 06:00 Intake Total 1100 ml Output Total 1025 ml Balance 75 ml LETTY WILKES MD Dec 17, 2020 08:17
[2020-12-17] MEDS: HumaLOG INSULIN (NovoLOG) PER UNIT SC SCH ×4 (08:23→20:43)
[2020-12-17] MEDS: POTASSIUM CHLORIDE 10 MEQ SR TABLET PO SCH ×2 (08:24→21:13)
[2020-12-17] MEDS: ASPIRIN 81MG ENTERIC TABLET PO SCH (08:24)
[2020-12-17] MEDS: OMEPRAZOLE 20 MG CAP PO SCH (08:24)
[2020-12-17] MEDS: SENOKOT S TAB PO SCH ×2 (08:24→21:13)
[2020-12-17] MEDS: MIRALAX *UNIT DOSE* 17GM PACKET PO SCH (08:32)
--- NOTE | 2020-12-17 10:38 | IPNPDOC ---
Subjective Date Seen The patient was seen on 12/17/20. Subjective Chief Complaint/HPI Subjective: Patient was seen at the side alert, oriented 3. Patient states that her pain is currently controlled. Denies any acute events, CP, sob, abdominal pain. Pt is passing flatus and had a bowel movement this morning. Objective: PHYSICAL EXAMINATION: Constitutional: Awake and alert, in no apparent distress ENT: Sclera are clear. Mucosa is moist. Respiratory: Lungs CTA bilaterally. No respiratory distress. Cardiovascular: RRR S1 and S2 are normal Gastrointestinal: Abdomen is soft, non distended, non tender, BS present. Musculoskeletal: No lower extremity edema. Limited motion at hips. Right hip tenderness Neurologic: No focal neurological deficit. Mental Status: A&O x3, normal affect Skin: Warm, dry LABORATORY DATA: See below. IMAGING: See chart MICROBIOLOGY: Please see below. ASSESSMENT & PLAN: 85-year-old female history of hypertension and diabetes who had a mechanical fall at home tripping down stairs was found to have a right hip fracture. Orthopedic surgery was consulted from the emergency department who will see the patient in the morning. Patient is status post day 1 of R hip selina-arthroplasty. # s/p day 1 R hip hemiarthroplasty - Pain control with oxy and Tylenol per ortho - Per ortho- mobilize with walker - c/w PT/OT - Fall precautions - ARU screen and placement # Hypertension -Continue home meds. Monitor and titrate # DM -ISS. Frequent Accu-Checks. Hypoglycemic precautions DVT prophylaxis: Heparin GI ppx: none Fluids: none Diet: consistent carb Code status: Full Disposition: - c/w PT/OT - ARU screen and placement Assessment /Plan Plan/VTE VTE Prophylaxis Ordered?: Yes (scd teds) VS, I&O, 24H, Fishbone Vital Signs/I&O Vital Signs Date Time Temp Pulse Resp B/P (MAP) Pulse Ox O2 Delivery O2 Flow Rate FiO2 12/17/20 07:04 18 12/17/20 07:00 185/99 (127) 12/17/20 06:30 79 12/17/20 06:28 99.4 100 Nasal Cannula 2.0 12/15/20 17:42 95 I&O- Last 24 Hours up to 6 AM 12/17/20 06:00 Intake Total 1100 ml Output Total 1025 ml Balance 75 ml Laboratory Data 24H LABS Laboratory Tests 2 12/16/20 22:07: Bedside Glucose (Misc Panel) 172H 12/17/20 06:05: Nucleated Red Blood Cells % (auto) 0.0, Anion Gap 7L, Glomerular Filtration Rate > 60.0, Calcium Level 8.9 CBC/BMP Laboratory Tests 12/17/20 06:05 GME ATTESTATION GME ATTESTATION My faculty preceptor for this patient encounter was physically present during the encounter and was fully available. All aspects of the patient interview, examination, medical decision making process, and medical care plan development were reviewed and approved by the faculty preceptor. The faculty preceptor is aware and concurs with the plan as stated in the body of this note and will attest to such by his/her cosignature. ATTENDING NOTE I, Shama Sebastian, have independently examined this patient and performed my own physical exam, as well as reviewed the documentation and edited where necessary. I have discussed in detail with the resident / student the findings and plan of treatment as documented by the resident / student and edited their note. I agree with their findings and treatment plan and have edited their documentation. I will continue to follow the patient during this hospital stay. Michelle Mcqueen DO Dec 17, 2020 10:38 SHAMA SEBASTIAN MD Dec 17, 2020 13:33
[2020-12-17 11:00] VITALS: BP 164/81
[2020-12-17] MEDS ORDERED: COVID-19 VAC,AD26(JANSSEN)/PF 0.5ML SYRINGE (EUA) IM ONE (11:00)
[2020-12-17 14:00] VITALS: BP 153/71
[2020-12-17] MEDS: RIVAROXABAN 10 MG TAB (XARELTO) PO SCH (17:50)
[2020-12-17 19:48] VITALS: BP 173/77
[2020-12-17] MEDS: ACETAMINOPHEN TAB 650MG DOSE (2X325MG) PO PRN (21:14)
[2020-12-18 04:13] VITALS: BP 175/72
[2020-12-18] MEDS: METOPROLOL TART 50 MG TAB PO SCH ×3 (05:04→20:51)
[2020-12-18] MEDS: ACETAMINOPHEN TAB 650MG DOSE (2X325MG) PO PRN ×3 (05:04→20:51)
[2020-12-18 07:26] LABS: BASO % 0.1 % (0.0-1.0); EOS # 0.1 10^3/uL (0.0-0.5); EOS % 1.1 % (0.0-3.0); HEMATOCRIT 31.3 % (36.0-47.0); HEMOGLOBIN 9.7 g/dl (12.0-15.5); LYMPH # 0.9 10^3/uL (1.5-5.0); LYMPH % 11.3 % (24.0-44.0); MEAN CORPUSCULAR HEMOGLOBIN 27.2 pg (27.0-33.0); MEAN CORPUSCULAR VOLUME 87.9 fl (80.0-96.0); MONO # 0.9 10^3/uL (0.0-0.8); MONO % 10.3 % (2.0-8.0); NEUTROPHILS # 6.3 10^3/uL (1.5-8.5); PLATELET COUNT, AUTOMATED 229 10^3/uL (150-450); RED BLOOD COUNT 3.56 10^6/uL (4.00-5.40); WHITE BLOOD COUNT 8.2 10^3/uL (4.0-10.0)
--- NOTE | 2020-12-18 07:27 | IPNPDOC ---
Subjective Date Seen The patient was seen on 12/18/20. Subjective Chief Complaint/HPI Subjective: Seen at bedside, NAD, sitting in chair eating breakfast. Denies any acute events overnight. Pt is passing flatus, but still has not had a bowel movement yet. She has miralax, senna and docusate on board to help with that. Denies CP, sob, fever, chills, n/v/d. Objective: PHYSICAL EXAMINATION: Constitutional: Awake and alert, in no apparent distress ENT: Sclera are clear. Mucosa is moist. Respiratory: Lungs CTA bilaterally. No respiratory distress. Cardiovascular: RRR S1 and S2 are normal Gastrointestinal: Abdomen is soft, non distended, non tender, BS present. Musculoskeletal: No lower extremity edema. Limited motion at hips. Right hip tenderness Neurologic: No focal neurological deficit. Mental Status: A&O x3, normal affect Skin: Warm, dry LABORATORY DATA: See below. IMAGING: See chart MICROBIOLOGY: Please see below. ASSESSMENT & PLAN: 85-year-old female history of hypertension and diabetes who had a mechanical fall at home tripping down stairs was found to have a right hip fracture. Orthopedic surgery was consulted from the emergency department who will see the patient in the morning. Patient is status post R hip selina-arthroplasty. # s/p day 2 R hip hemiarthroplasty - Pain control with oxy and Tylenol per ortho - Per ortho- mobilize with walker - c/w PT/OT - Fall precautions - c/w bowel regimen - ARU screen and placement # Hypertension -Continue home meds. Monitor and titrate # DM2 -ISS. Frequent Accu-Checks. Hypoglycemic precautions DVT prophylaxis: Xarelto as per orthopedic surgery GI ppx: none Fluids: none Diet: consistent carb Code status: Full Disposition: c/w PT/OT. ARU screen and placement Assessment /Plan Plan/VTE VTE Prophylaxis Ordered?: Yes (scd teds) VS, I&O, 24H, Fishbone Vital Signs/I&O Vital Signs Date Time Temp Pulse Resp B/P (MAP) Pulse Ox O2 Delivery O2 Flow Rate FiO2 12/18/20 05:04 80 142/68 12/18/20 04:13 97.8 20 97 Room Air 12/17/20 11:00 1.0 12/15/20 17:42 95 I&O- Last 24 Hours up to 6 AM 12/18/20 06:00 Intake Total 1520 ml Output Total 700 ml Balance 820 ml Laboratory Data 24H LABS Laboratory Tests 2 12/18/20 07:06: CBC/BMP GME ATTESTATION GME ATTESTATION My faculty preceptor for this patient encounter was physically present during the encounter and was fully available. All aspects of the patient interview, examination, medical decision making process, and medical care plan development were reviewed and approved by the faculty preceptor. The faculty preceptor is aware and concurs with the plan as stated in the body of this note and will attest to such by his/her cosignature. ATTENDING NOTE I, Shama Sebastian, have independently examined this patient and performed my own physical exam, as well as reviewed the documentation and edited where necessary. I have discussed in detail with the resident / student the findings and plan of treatment as documented by the resident / student and edited their note. I agree with their findings and treatment plan and have edited their documentation. I will continue to follow the patient during this hospital stay. Michelle Mcqueen DO Dec 18, 2020 07:27 SHAMA SEBASTIAN MD Dec 18, 2020 14:16
[2020-12-18 07:49] LABS: BLOOD UREA NITROGEN 16 MG/DL (7-18); CALCIUM LEVEL 8.4 MG/DL (8.8-10.2); CARBON DIOXIDE LEVEL 32 MEQ/L (21-32); CHLORIDE LEVEL 105 MEQ/L (98-107); CREATININE FOR GFR 0.51 MG/DL (0.55-1.30); GLOMERULAR FILTRATION RATE > 60.0 (>32); GLUCOSE, FASTING 192 MG/DL (70-100); MAGNESIUM LEVEL 1.9 MG/DL (1.8-2.4); POTASSIUM SERUM 3.6 MEQ/L (3.5-5.1); SODIUM LEVEL 141 MEQ/L (136-145)
[2020-12-18] MEDS: HumaLOG INSULIN (NovoLOG) PER UNIT SC SCH ×4 (08:03→20:50)
[2020-12-18] MEDS: MIRALAX *UNIT DOSE* 17GM PACKET PO SCH (08:03)
[2020-12-18] MEDS: ASPIRIN 81MG ENTERIC TABLET PO SCH (08:04)
[2020-12-18] MEDS: LOSARTAN 50MG TABLET PO SCH (08:06)
[2020-12-18] MEDS: SENOKOT S TAB PO SCH ×2 (08:06→20:50)
[2020-12-18] MEDS: OMEPRAZOLE 20 MG CAP PO SCH (08:06)
[2020-12-18] MEDS: POTASSIUM CHLORIDE 10 MEQ SR TABLET PO SCH ×2 (08:07→20:51)
--- NOTE | 2020-12-18 11:33 | IPNPDOC ---
Text Note Date of Service The patient was seen on 12/18/20. NOTE POD2 R Hip Hemiarthroplasty for fracture. Pt sitting up in chair. More lucent regarding comments. Recalls the cause of her fall. NAD and c/o some R hip pain. Dressing intact with no obvious strikethrough, R hip. Grossly moving R foot and ankle. Continue to mobilize. Pt will likely require rehab. Van Wilkes MD VS,Donnie, I+O VS, Donnie I+O Laboratory Tests 12/18/20 07:06 Vital Signs Date Time Temp Pulse Resp B/P (MAP) Pulse Ox O2 Delivery O2 Flow Rate FiO2 12/18/20 08:06 142/68 12/18/20 05:04 80 12/18/20 04:13 97.8 20 97 Room Air 12/17/20 11:00 1.0 12/15/20 17:42 95 I&O- Last 24 Hours up to 6 AM 12/18/20 06:00 Intake Total 1520 ml Output Total 700 ml Balance 820 ml VAN WILKES MD Dec 18, 2020 11:33
[2020-12-18 14:00] VITALS: BP 138/52
[2020-12-18] MEDS: RIVAROXABAN 10 MG TAB (XARELTO) PO SCH (17:11)
[2020-12-18 19:59] VITALS: BP 136/55
[2020-12-19] MEDS: ACETAMINOPHEN TAB 650MG DOSE (2X325MG) PO PRN ×3 (05:04→20:45)
[2020-12-19] MEDS: METOPROLOL TART 50 MG TAB PO SCH ×3 (05:05→20:46)
[2020-12-19 06:01] VITALS: BP 152/75
[2020-12-19 06:49] LABS: BASO % 0.4 % (0.0-1.0); EOS # 0.2 10^3/uL (0.0-0.5); EOS % 3.2 % (0.0-3.0); HEMATOCRIT 30.5 % (36.0-47.0); HEMOGLOBIN 9.6 g/dl (12.0-15.5); LYMPH # 1.1 10^3/uL (1.5-5.0); MEAN CORPUSCULAR HEMOGLOBIN 27.7 pg (27.0-33.0); MEAN CORPUSCULAR HGB CONC 31.5 g/dl (32.0-36.5); MEAN CORPUSCULAR VOLUME 88.2 fl (80.0-96.0); MONO # 0.5 10^3/uL (0.0-0.8); MONO % 7.8 % (2.0-8.0); PLATELET COUNT, AUTOMATED 218 10^3/uL (150-450); RED BLOOD COUNT 3.46 10^6/uL (4.00-5.40)
[2020-12-19 07:17] LABS: BLOOD UREA NITROGEN 23 MG/DL (7-18); CALCIUM LEVEL 8.5 MG/DL (8.8-10.2); CARBON DIOXIDE LEVEL 31 MEQ/L (21-32); CHLORIDE LEVEL 106 MEQ/L (98-107); CREATININE FOR GFR 0.56 MG/DL (0.55-1.30); GLOMERULAR FILTRATION RATE > 60.0 (>32); GLUCOSE, FASTING 239 MG/DL (70-100); MAGNESIUM LEVEL 2.2 MG/DL (1.8-2.4); POTASSIUM SERUM 3.9 MEQ/L (3.5-5.1); SODIUM LEVEL 141 MEQ/L (136-145)
[2020-12-19] MEDS: OMEPRAZOLE 20 MG CAP PO SCH (07:59)
[2020-12-19] MEDS: HumaLOG INSULIN (NovoLOG) PER UNIT SC SCH ×4 (07:59→20:40)
[2020-12-19] MEDS: POTASSIUM CHLORIDE 10 MEQ SR TABLET PO SCH ×2 (08:00→20:45)
[2020-12-19] MEDS: LOSARTAN 50MG TABLET PO SCH (08:00)
[2020-12-19] MEDS: SENOKOT S TAB PO SCH ×2 (08:01→18:58)
[2020-12-19] MEDS: ASPIRIN 81MG ENTERIC TABLET PO SCH (08:01)
[2020-12-19] MEDS: MIRALAX *UNIT DOSE* 17GM PACKET PO SCH (08:01)
--- NOTE | 2020-12-19 10:11 | IPNPDOC ---
Text Note Date of Service The patient was seen on 12/19/20. NOTE Subjective: Patient is an 85-year-old female with a PMHx of HTN, DM2, who had sustained a mechanical fall at home and landed on her right hip. Patient had reported significant right hip pain. Upon arrival to emergency room, patient was found to have a right hip fracture. She was admitted to the hospital service for further evaluation and treatment. Orthopedic surgery was called on consultation. Patient was seen and examined at the bedside. Patient was seen sitting up in chair eating breakfast. Denies any chest pain, short of breath, palpitations, nausea, vomiting, abdominal pain, has reported regular bowel movements. Denies any urinary discomfort. Objective: Vitals (See below) General: Sitting up in chair, appears comfortable, AAOx3 HEENT: NC, AT CVS: +S1S2 Lungs: Fair air entry b/l, -w/r/r Abdomen: Soft, ND, NT Extremities: - Edema, - Calf tenderness Assessment and plan: Right hip pain - 2/2 impacted right femoral neck fracture - 2/2 mechanical fall - Patient reports significant improvement of her hip pain - s/p Right hip arthroplasty (12/16/2020) with Dr. Owusu - c/w Pain control and Bowel regimen - c/w PT/OT HTN - BP well controlled - c/w Losartan / Metoprolol NIDDM2 - c/w ISS GERD - c/w Omeprazole DVT prophylaxis - c/w Xarelto as per orthopedic surgery Disposition: - c/w PT/OT - Will likely require rehabilitation before DC home VS,Prasanthbone, I+O VS, Fishbone, I+O Laboratory Tests 12/19/20 06:09 Vital Signs Date Time Temp Pulse Resp B/P (MAP) Pulse Ox O2 Delivery O2 Flow Rate FiO2 12/19/20 08:00 152/75 12/19/20 06:01 98.5 82 18 96 Room Air 12/17/20 11:00 1.0 12/15/20 17:42 95 I&O- Last 24 Hours up to 6 AM 12/19/20 06:00 Intake Total 1240 ml Output Total 0 ml Balance 1240 ml DIEGO SEBASTIAN MD Dec 19, 2020 10:11
[2020-12-19 14:00] VITALS: BP 124/68
[2020-12-19] MEDS: RIVAROXABAN 10 MG TAB (XARELTO) PO SCH (17:16)
[2020-12-19 22:00] VITALS: BP 155/73
[2020-12-20] MEDS: ACETAMINOPHEN TAB 650MG DOSE (2X325MG) PO PRN (05:00)
[2020-12-20] MEDS: METOPROLOL TART 50 MG TAB PO SCH ×3 (05:00→22:00)
[2020-12-20 06:00] VITALS: BP 178/72
[2020-12-20 06:48] LABS: BASO % 0.6 % (0.0-1.0); EOS # 0.3 10^3/uL (0.0-0.5); EOS % 4.1 % (0.0-3.0); HEMATOCRIT 33.9 % (36.0-47.0); HEMOGLOBIN 10.2 g/dl (12.0-15.5); LYMPH # 1.4 10^3/uL (1.5-5.0); LYMPH % 20.6 % (24.0-44.0); MEAN CORPUSCULAR HGB CONC 30.1 g/dl (32.0-36.5); MEAN CORPUSCULAR VOLUME 89.7 fl (80.0-96.0); MONO # 0.6 10^3/uL (0.0-0.8); MONO % 8.3 % (2.0-8.0); NEUTROPHILS # 4.6 10^3/uL (1.5-8.5); NEUTROPHILS % 65.8 % (36.0-66.0); PLATELET COUNT, AUTOMATED 306 10^3/uL (150-450); RED BLOOD COUNT 3.78 10^6/uL (4.00-5.40)
[2020-12-20 07:07] LABS: BLOOD UREA NITROGEN 17 MG/DL (7-18); CALCIUM LEVEL 8.8 MG/DL (8.8-10.2); CARBON DIOXIDE LEVEL 33 MEQ/L (21-32); CHLORIDE LEVEL 105 MEQ/L (98-107); CREATININE FOR GFR 0.55 MG/DL (0.55-1.30); GLOMERULAR FILTRATION RATE > 60.0 (>32); GLUCOSE, FASTING 196 MG/DL (70-100); MAGNESIUM LEVEL 2.2 MG/DL (1.8-2.4); POTASSIUM SERUM 4.6 MEQ/L (3.5-5.1); SODIUM LEVEL 142 MEQ/L (136-145)
[2020-12-20] MEDS: OMEPRAZOLE 20 MG CAP PO SCH (08:31)
[2020-12-20] MEDS: POTASSIUM CHLORIDE 10 MEQ SR TABLET PO SCH ×2 (08:31→21:00)
[2020-12-20] MEDS: ASPIRIN 81MG ENTERIC TABLET PO SCH (08:31)
[2020-12-20] MEDS: HumaLOG INSULIN (NovoLOG) PER UNIT SC SCH ×4 (08:32→21:00)
[2020-12-20] MEDS: LOSARTAN 50MG TABLET PO SCH (08:33)
[2020-12-20] MEDS: MIRALAX *UNIT DOSE* 17GM PACKET PO SCH (08:34)
[2020-12-20] MEDS: SENOKOT S TAB PO SCH ×2 (08:34→21:00)
[2020-12-20] MEDS ORDERED: XARE10TA PO (09:33)
[2020-12-20] MEDS ORDERED: INSUHUMDS SC (09:33)
--- NOTE | 2020-12-20 10:34 | DS.PDOC ---
Discharge Summary General Date of Admission Dec 15, 2020 at 21:08 Date of Discharge 12/20/2020 Discharge Summary PROCEDURES PERFORMED DURING STAY: Right hip hemiarthroplasty with Dr. Owusu on 12/16/2020 ADMITTING DIAGNOSES / DISCHARGE DIAGNOSES: Right hip pain - 2/2 impacted right femoral neck fracture - 2/2 mechanical fall HTN NIDDM2 GERD DVT prophylaxis COMPLICATIONS/CHIEF COMPLAINT: Fall, Right Hip Fracture. HISTORY OF PRESENT ILLNESS: Patient is an 85-year-old female with a PMHx of HTN, DM2, who had sustained a mechanical fall at home and landed on her right hip. Patient had reported significant right hip pain. Upon arrival to emergency room, patient was found to have a right hip fracture. She was admitted to the hospital service for further evaluation and treatment. Orthopedic surgery was called on consultation. HOSPITAL COURSE: Right hip pain - 2/2 impacted right femoral neck fracture - 2/2 mechanical fall - Patient has reported improvement of her pain - s/p Right hip arthroplasty (12/16/2020) with Dr. Owusu - c/w Pain control and Bowel regimen - c/w PT/OT; will continue in rehabilitation today HTN - BP well controlled - c/w Losartan / Metoprolol NIDDM2 - c/w ISS GERD - c/w Omeprazole DVT prophylaxis - c/w Xarelto as per orthopedic surgery DISCHARGE MEDICATIONS: Please see below. ALLERGIES: Please see below. PHYSICAL EXAMINATION ON DISCHARGE: Vitals (See below) General: Sitting up in chair and eating breakfast, no acute distress and remains comfortable, awake and alert HEENT: NC, AT CVS: +S1S2 Lungs: Fair air entry b/l, no appreciable wheezing, rhonchi or rales Abdomen: Soft, nondistended, nontender Extremities: No evidence of edema, - Calf tenderness LABORATORY DATA: Please see below. ACTIVITY: [As tolerated]. DISCHARGE PLAN: Follow-up with primary care provider and orthopedic surgery within the next 7 days Remain compliant with treatment plan and medications Return to the ER if you experience any problems DISPOSITION: Transitioned ARU DISCHARGE CONDITION: [Stable]. TIME SPENT ON DISCHARGE: 35 minutes. Vital Signs/I&Os Vital Signs Date Time Temp Pulse Resp B/P (MAP) Pulse Ox O2 Delivery O2 Flow Rate FiO2 12/20/20 08:33 151/78 12/20/20 06:00 98.3 75 18 97 Room Air 12/17/20 11:00 1.0 12/15/20 17:42 95 I&O- Last 24 Hours up to 6 AM 12/20/20 05:59 Intake Total 1620 ml Balance 1620 ml Laboratory Data Labs 24H Laboratory Tests 2 12/19/20 11:13: Bedside Glucose (Misc Panel) 228H 12/19/20 17:05: Bedside Glucose (Misc Panel) 157H 12/19/20 19:31: Bedside Glucose (Misc Panel) 244H 12/20/20 06:16: Immature Granulocyte % (Auto) 0.6, Neutrophils (%) (Auto) 65.8, Lymphocytes (%) (Auto) 20.6L, Monocytes (%) (Auto) 8.3H, Eosinophils (%) (Auto) 4.1H, Basophils (%) (Auto) 0.6, Neutrophils # (Auto) 4.6, Lymphocytes # (Auto) 1.4L, Monocytes # (Auto) 0.6, Eosinophils # (Auto) 0.3, Basophils # (Auto) 0.0, Nucleated Red Blood Cells % (auto) 0.0, Anion Gap 4L, Glomerular Filtration Rate > 60.0, Ca lcium Level 8.8, Magnesium Level 2.2 CBC/BMP Laboratory Tests 12/20/20 06:16 FSBS Laboratory Tests Test 12/19/20 11:13 12/19/20 17:05 12/19/20 19:31 Range/Units Bedside Glucose (Misc Panel) 228 157 244 83-110 MG/DL Discharge Medications Scheduled Aspirin (Aspirin EC) 81 Mg Tablet.dr, 81 MG PO DAILY, (Reported) Insulin Human Lispro (Humalog) 100 Unit/1 Ml Vial, 0 UNITS SC ACHS Losartan Potassium (Losartan Potassium) 50 Mg Tablet, 50 MG PO DAILY, (Reported) Metoprolol Tartrate (Metoprolol Tartrate) 50 Mg Tablet, 50 MG PO Q8H, (Reported) Omeprazole (Omeprazole) 40 Mg Capsule.dr, 40 MG PO DAILY, (Reported) Potassium Chloride (K-Tab ER) 10 Meq Tablet.er, 10 MEQ PO BID, (Reported) Rivaroxaban (Xarelto) 10 Mg Tablet, 10 MG PO DAILY@18 Scheduled PRN Acetaminophen (Arthritis Pain) 650 Mg Tablet.er, 650 MG PO Q8H PRN for PAIN, (Reported) Diclofenac Sodium (Voltaren) 100 Gm Gel..gram., 1 GRAM TOP QID PRN for PAIN, (Reported) APPLY TO SHOULDER PRN Allergies Coded Allergies: No Known Allergies (Unverified , 01/13/19) DIEGO SEBASTIAN MD Dec 20, 2020 10:33
[2020-12-20 14:00] VITALS: BP 134/72
--- NOTE | 2020-12-20 16:27 | IPNPDOC ---
Text Note Date of Service The patient was seen on 12/20/20. NOTE POD 4 Right hip Hemiarthroplasty Pt doing well. Pain in right hip, mostly at night. Has been up with PT walking the halls today, twice. Pt does not appear confused at all today and appears to be improving overall. Dressing was viewed. No obvious staining of the dressing. This optifoam dressing may remain in position for 3 more days. Steristrips will fall off on their own. Cover with telfa island or telfa and tegaderm for 72 hours after removal of optifoam dressing. Pt to continue to mobilize. Will require REhab. Van Wilkes MD VS,Donnie, I+O VS, Donnie, I+O Laboratory Tests 12/20/20 06:16 Vital Signs Date Time Temp Pulse Resp B/P (MAP) Pulse Ox O2 Delivery O2 Flow Rate FiO2 12/20/20 13:32 100 152/78 12/20/20 06:00 98.3 18 97 Room Air 12/17/20 11:00 1.0 12/15/20 17:42 95 I&O- Last 24 Hours up to 6 AM 12/20/20 05:59 Intake Total 1620 ml Balance 1620 ml VAN WILKES MD Dec 20, 2020 16:27
[2020-12-20] MEDS: RIVAROXABAN 10 MG TAB (XARELTO) PO SCH (17:17)
[2020-12-20] MEDS ORDERED: HALOPERIDOL 5MG/ML VIAL (J1630 PER 1) IV PRN (20:50)
[2020-12-21 06:00] VITALS: BP 150/78
[2020-12-21] MEDS: METOPROLOL TART 50 MG TAB PO SCH ×3 (06:03→20:25)
[2020-12-21 07:00] LABS: BASO % 0.6 % (0.0-1.0); EOS # 0.2 10^3/uL (0.0-0.5); EOS % 3.4 % (0.0-3.0); HEMATOCRIT 31.6 % (36.0-47.0); HEMOGLOBIN 9.7 g/dl (12.0-15.5); LYMPH # 1.2 10^3/uL (1.5-5.0); LYMPH % 22.7 % (24.0-44.0); MEAN CORPUSCULAR HEMOGLOBIN 27.6 pg (27.0-33.0); MEAN CORPUSCULAR HGB CONC 30.7 g/dl (32.0-36.5); MONO # 0.5 10^3/uL (0.0-0.8); MONO % 9.3 % (2.0-8.0); NEUTROPHILS # 3.3 10^3/uL (1.5-8.5); NEUTROPHILS % 63.2 % (36.0-66.0); PLATELET COUNT, AUTOMATED 288 10^3/uL (150-450); RED BLOOD COUNT 3.51 10^6/uL (4.00-5.40); WHITE BLOOD COUNT 5.3 10^3/uL (4.0-10.0)
[2020-12-21 07:25] LABS: BLOOD UREA NITROGEN 22 MG/DL (7-18); CALCIUM LEVEL 8.8 MG/DL (8.8-10.2); CARBON DIOXIDE LEVEL 31 MEQ/L (21-32); CHLORIDE LEVEL 105 MEQ/L (98-107); CREATININE FOR GFR 0.56 MG/DL (0.55-1.30); GLOMERULAR FILTRATION RATE > 60.0 (>32); GLUCOSE, FASTING 213 MG/DL (70-100); MAGNESIUM LEVEL 1.9 MG/DL (1.8-2.4); POTASSIUM SERUM 3.8 MEQ/L (3.5-5.1); SODIUM LEVEL 141 MEQ/L (136-145)
[2020-12-21] MEDS: SENOKOT S TAB PO SCH ×2 (09:00→20:25)
[2020-12-21] MEDS: MIRALAX *UNIT DOSE* 17GM PACKET PO SCH (09:30)
[2020-12-21] MEDS: ASPIRIN 81MG ENTERIC TABLET PO SCH (09:31)
[2020-12-21] MEDS: HumaLOG INSULIN (NovoLOG) PER UNIT SC SCH ×4 (09:31→20:26)
[2020-12-21] MEDS: OMEPRAZOLE 20 MG CAP PO SCH (09:32)
[2020-12-21] MEDS: POTASSIUM CHLORIDE 10 MEQ SR TABLET PO SCH ×2 (09:32→20:25)
[2020-12-21] MEDS: LOSARTAN 50MG TABLET PO SCH (09:32)
[2020-12-21 14:00] VITALS: BP 136/59
[2020-12-21] MEDS: RIVAROXABAN 10 MG TAB (XARELTO) PO SCH (17:47)
[2020-12-21 22:00] VITALS: BP 139/81
[2020-12-22 06:00] VITALS: BP 146/83
[2020-12-22] MEDS: METOPROLOL TART 50 MG TAB PO SCH ×3 (06:12→21:50)
[2020-12-22 07:14] LABS: BASO # 0.1 10^3/uL (0.0-0.2); BASO % 0.7 % (0.0-1.0); EOS # 0.2 10^3/uL (0.0-0.5); EOS % 3.1 % (0.0-3.0); HEMATOCRIT 33.1 % (36.0-47.0); LYMPH # 1.4 10^3/uL (1.5-5.0); LYMPH % 18.5 % (24.0-44.0); MEAN CORPUSCULAR HEMOGLOBIN 27.3 pg (27.0-33.0); MEAN CORPUSCULAR HGB CONC 30.2 g/dl (32.0-36.5); MEAN CORPUSCULAR VOLUME 90.4 fl (80.0-96.0); MONO # 0.6 10^3/uL (0.0-0.8); MONO % 8.4 % (2.0-8.0); NEUTROPHILS # 5.1 10^3/uL (1.5-8.5); NEUTROPHILS % 68.8 % (36.0-66.0); PLATELET COUNT, AUTOMATED 316 10^3/uL (150-450); RED BLOOD COUNT 3.66 10^6/uL (4.00-5.40); WHITE BLOOD COUNT 7.4 10^3/uL (4.0-10.0)
[2020-12-22 07:43] LABS: BLOOD UREA NITROGEN 24 MG/DL (7-18); CALCIUM LEVEL 8.8 MG/DL (8.8-10.2); CARBON DIOXIDE LEVEL 31 MEQ/L (21-32); CHLORIDE LEVEL 106 MEQ/L (98-107); CREATININE FOR GFR 0.43 MG/DL (0.55-1.30); GLOMERULAR FILTRATION RATE > 60.0 (>32); GLUCOSE, FASTING 217 MG/DL (70-100); SODIUM LEVEL 142 MEQ/L (136-145)
[2020-12-22] MEDS: HumaLOG INSULIN (NovoLOG) PER UNIT SC SCH ×4 (08:17→21:00)
[2020-12-22] MEDS: MIRALAX *UNIT DOSE* 17GM PACKET PO SCH (08:18)
[2020-12-22] MEDS: ASPIRIN 81MG ENTERIC TABLET PO SCH (08:18)
[2020-12-22] MEDS: LOSARTAN 50MG TABLET PO SCH (08:18)
[2020-12-22] MEDS: OMEPRAZOLE 20 MG CAP PO SCH (08:18)
[2020-12-22] MEDS: POTASSIUM CHLORIDE 10 MEQ SR TABLET PO SCH ×2 (08:18→21:31)
[2020-12-22] MEDS: SENOKOT S TAB PO SCH ×2 (08:18→21:00)
[2020-12-22] MEDS: RIVAROXABAN 10 MG TAB (XARELTO) PO SCH (18:57)
[2020-12-22] MEDS: ACETAMINOPHEN TAB 650MG DOSE (2X325MG) PO PRN (21:32)
[2020-12-22 22:00] VITALS: BP 146/82
[2020-12-23] MEDS: METOPROLOL TART 50 MG TAB PO SCH (05:46)
[2020-12-23] MEDS: ACETAMINOPHEN TAB 650MG DOSE (2X325MG) PO PRN (05:46)
[2020-12-23 06:00] VITALS: BP 146/82
[2020-12-23 07:08] LABS: BASO # 0.1 10^3/uL (0.0-0.2); BASO % 0.7 % (0.0-1.0); EOS # 0.2 10^3/uL (0.0-0.5); EOS % 2.3 % (0.0-3.0); HEMATOCRIT 32.9 % (36.0-47.0); LYMPH # 1.1 10^3/uL (1.5-5.0); LYMPH % 16.4 % (24.0-44.0); MEAN CORPUSCULAR HEMOGLOBIN 27.5 pg (27.0-33.0); MEAN CORPUSCULAR HGB CONC 30.4 g/dl (32.0-36.5); MEAN CORPUSCULAR VOLUME 90.4 fl (80.0-96.0); MONO # 0.6 10^3/uL (0.0-0.8); MONO % 8.3 % (2.0-8.0); NEUTROPHILS # 4.9 10^3/uL (1.5-8.5); NEUTROPHILS % 71.6 % (36.0-66.0); PLATELET COUNT, AUTOMATED 352 10^3/uL (150-450); RED BLOOD COUNT 3.64 10^6/uL (4.00-5.40); WHITE BLOOD COUNT 6.8 10^3/uL (4.0-10.0)
[2020-12-23 07:36] LABS: BLOOD UREA NITROGEN 21 MG/DL (7-18); CALCIUM LEVEL 8.6 MG/DL (8.8-10.2); CARBON DIOXIDE LEVEL 28 MEQ/L (21-32); CHLORIDE LEVEL 106 MEQ/L (98-107); CREATININE FOR GFR 0.58 MG/DL (0.55-1.30); GLOMERULAR FILTRATION RATE > 60.0 (>32); GLUCOSE, FASTING 238 MG/DL (70-100); POTASSIUM SERUM 4.1 MEQ/L (3.5-5.1); SODIUM LEVEL 142 MEQ/L (136-145)
--- NOTE | 2020-12-23 07:51 | IPNPDOC ---
Date Seen The patient was seen on 12/23/20. Progress Note SUBJECTIVE: Patient was seen and examined at bedside this morning. She is doing well. No acute events overnight. No physical complaints. She is afebrile. Does not complain of chest pain, dryness of breath, palpitations, lightheadedness, nausea, vomiting, diarrhea or fevers and chills. Patient is planned for DC to [facility] rehab today. For a detailed description of her stay, please see DC summary from Dr. Bellamy, dated 12/20/20. OBJECTIVE PHYSICAL EXAMINATION: VITAL SIGNS: please see below General: NAD, comfortable HEENT: PERRLA, EOMI, sclerae clear Neck: supple, normal ROM, no JVD Respiratory: lungs CTAB, no wheeze, no rales, no crackles CVS: RRR, normal S1, S2, no murmurs Abdo: soft, no masses, no hepatosplenomegaly, BS+, no rebound tenderness Extremities: no edema, pulses 2+ MSK: no joint deformities, normal ROM Neuro: no focal neuro deficits, moving all 4 extremities, CN2-12 intact. Strength 5/5 in all 4 extremities. No nystagmus. Psych: calm, cooperative, AAO x 2 LABORATORY DATA, IMAGING STUDIES, MICROBIOLOGY: Please see below. DVT prophylaxis ordered?: Patient receives Xarelto 10 mg daily. PEDRO stockings. ASSESSMENT AND PLAN:85-year-old female with a PMHx of HTN, DM2, who had sustained a mechanical fall at home and landed on her right hip , resulting in a right femoral neck fracture. She is postop day 7 following a right hip hemiarthroplasty. PROBLEMS: Right hip pain - 2/2 impacted right femoral neck fracture - 2/2 mechanical fall - Patient has reported improvement of her pain - s/p Right hip arthroplasty (12/16/2020) with Dr. Owusu - c/w Pain control and Bowel regimen - c/w PT/OT; requires continued rehab - planned for discharge to [facility] rehab on 12/23/20 HTN - BP appropriate - c/w Losartan / Metoprolol NIDDM2 - c/w ISS GERD - c/w Omeprazole DVT prophylaxis - c/w Xarelto as per orthopedic surgery DISPOSITION: Plan for [facility] rehabilitation today. Patient has been stable since her surgery. Medically prepared for transfer. VS, I&O, 24H, [facility] Vital Signs/I&O Vital Signs Date Time Temp Pulse Resp B/P (MAP) Pulse Ox O2 Delivery O2 Flow Rate FiO2 12/23/20 06:00 97.6 112 20 146/82 (103) 96 Room Air 12/17/20 11:00 1.0 I&O- Last 24 Hours up to 6 AM 12/23/20 05:59 Intake Total 460 ml Balance 460 ml Laboratory Data 24H LABS Laboratory Tests 2 12/22/20 11:30: Bedside Glucose (Misc Panel) 215H 12/22/20 16:40: Bedside Glucose (Misc Panel) 131H 12/22/20 19:55: Bedside Glucose (Misc Panel) 229H 12/23/20 06:39: Bedside Glucose (Misc Panel) 196H 12/23/20 06:58: Immature Granulocyte % (Auto) 0.7, Neutrophils (%) (Auto) 71.6H, Lymphocytes (%) (Auto) 16.4L, Monocytes (%) (Auto) 8.3H, Eosinophils (%) (Auto) 2.3, Basophils (%) (Auto) 0.7, Neutrophils # (Auto) 4.9, Lymphocytes # (Auto) 1.1L, Monocytes # (Auto) 0.6, Eosinophils # (Auto) 0.2, Basophils # (Auto) 0.1, Nucleated Red Blood Cells % (auto) 0.0, Anion Gap 8, Glomerular Filtration Rate > 60.0, Calcium Level 8.6L, Magnesium Level 2.0 CBC/BMP Laboratory Tests 12/23/20 06:58 FREEMAN MENDOZA MD Dec 23, 2020 07:51
[2020-12-23] MEDS: MIRALAX *UNIT DOSE* 17GM PACKET PO SCH (09:00)
[2020-12-23] MEDS: SENOKOT S TAB PO SCH (09:07)
[2020-12-23 09:08] VITALS: BP 140/71
[2020-12-23] MEDS: LOSARTAN 50MG TABLET PO SCH (09:08)
[2020-12-23] MEDS: POTASSIUM CHLORIDE 10 MEQ SR TABLET PO SCH (09:08)
[2020-12-23] MEDS: OMEPRAZOLE 20 MG CAP PO SCH (09:08)
[2020-12-23] MEDS: ASPIRIN 81MG ENTERIC TABLET PO SCH (09:08)
[2020-12-23] MEDS: HumaLOG INSULIN (NovoLOG) PER UNIT SC SCH (09:09)
== END 2020-12-23 11:15 | DRG 522 ==
LOC: EDBD 16:51 → M ED 16:51 → M ED INP 21:08 → ENRESERV 21:28 → M MS5PR 22:35
PROVIDERS: ADMIT Family Medicine; ATTEND Internal Medicine
PROC: 0SRR0JA Replacement of Right Hip Joint, Femoral Surface with Synthetic Substitute, Uncemented, Open Approach (ICD-10-PCS; principal; 2020-12-16 15:00)
DX: S72.001A Fracture of unspecified part of neck of right femur, initial encounter for closed fracture (principal); I10 Essential (primary) hypertension; E11.9 Type 2 diabetes mellitus without complications; K21.9 Gastro-esophageal reflux disease without esophagitis; W10.9XXA Fall (on) (from) unspecified stairs and steps, initial encounter; Y92.009 Unspecified place in unspecified non-institutional (private) residence as the place of occurrence of the external cause; Z79.82 Long term (current) use of aspirin; Z79.899 Other long term (current) drug therapy; Z79.4 Long term (current) use of insulin

== ENCOUNTER → 2021-01-04 | Outpatient (CLI) | payer MEDICARE ==
[~2021-01-04] MED LIST: ARTH650T23 PO; ASPI81TA26 PO; INSUHUMDS SC; K-TA10TA2 PO; LOSA50TA88 PO; METF-839 PO; METO50TA7 PO; OMEP40CA97 PO; SITA50TAB PO; VOLT1GEL15 TOP; XARE10TA PO
--- NOTE | 2021-01-04 08:34 | REP ---
INDICATION: F/U COMPARISON: 12/15/2020 TECHNIQUE: AP and cross-table lateral views. FINDINGS: The patient is status post right hip replacement for acute femoral neck fracture with normal positioning and appearance to the femoral and acetabular components. IMPRESSION: Satisfactory right hip replacement radiographs. <Electronically signed by Ricardo Daniels > 01/04/21 0813
== END ==
LOC: M SOG 07:56
PROVIDERS: ATTEND Family Medicine
DX: Z96.641 Presence of right artificial hip joint (principal); Z98.890 Other specified postprocedural states

== ENCOUNTER → 2021-02-16 | Outpatient (CLI) | payer MEDICARE ==
--- NOTE | 2021-02-16 10:39 | REP ---
INDICATION: F/U HIP COMPARISON: 01/04/2021 TECHNIQUE: AP neutral and frog lateral views of the right hip. FINDINGS: The patient is status post right hip replacement with normal positioning and appearance to the femoral and acetabular components. No acute fracture or dislocation is appreciated. IMPRESSION: Right hip replacement. No acute fracture or dislocation. <Electronically signed by Ricardo Daniels > 02/16/21 [id number]
== END ==
LOC: M SOG 10:15
PROVIDERS: ATTEND Orthopaedic Surgery Adult Reconstructive Orthopaedic Surgery
DX: Z96.641 Presence of right artificial hip joint (principal)

== ENCOUNTER → 2023-12-27 | Outpatient (REF) | payer MEDICARE ==
[~2023-12-27] MED LIST changes: -K-TA10TA2 PO; +LOSA50TA28 PO; -LOSA50TA88 PO; +OMEP40CA4 PO; -OMEP40CA97 PO; +POTA-165 PO
[2023-12-28 13:51] LABS: PERCENT SATURATION 4.8 % (13.2-45.0)
[2023-12-28 13:54] LABS: FERRITIN 6.9 NG/ML (7.3-270.7)
== END ==
LOC: M LAB REF 16:27
PROVIDERS: ATTEND Internal Medicine
DX: M15.9 Polyosteoarthritis, unspecified (principal); M35.3 Polymyalgia rheumatica; D64.9 Anemia, unspecified

== ENCOUNTER → 2024-02-04 | Outpatient (REF) | payer MEDICARE | LOC: M LAB REF 16:30 | PROVIDERS: ATTEND Internal Medicine | DX: R19.4 Change in bowel habit (principal); D50.9 Iron deficiency anemia, unspecified ==

== ENCOUNTER 2024-05-01 12:44 | Emergency (ER) | payer MEDICARE ==
[~2024-05-01] VITALS: Ht 149.9 cm; Wt 32.3 kg
[2024-05-01 12:47] VITALS: TEMP 98.9
[2024-05-01 14:59] LABS: BASO % 0.4 % (0.0-1.0); EOS % 0.4 % (0.0-3.0); HEMATOCRIT 41.6 % (36.0-47.0); HEMOGLOBIN 13.3 g/dl (12.0-15.5); LYMPH % 17.5 % (24.0-44.0); MEAN CORPUSCULAR HEMOGLOBIN 30.9 pg (27.0-33.0); MEAN CORPUSCULAR VOLUME 96.5 fl (80.0-96.0); MONO # 0.3 10^3/uL (0.0-0.8); NEUTROPHILS # 4.1 10^3/uL (1.5-8.5); NEUTROPHILS % 75.2 % (36.0-66.0); PLATELET COUNT, AUTOMATED 211 10^3/uL (150-450); RED BLOOD COUNT 4.31 10^6/uL (4.00-5.40); WHITE BLOOD COUNT 5.5 10^3/uL (4.0-10.0)
[2024-05-01 15:13] LABS: BLOOD UREA NITROGEN 23 MG/DL (9-23); CALCIUM LEVEL 9.2 MG/DL (8.3-10.6); CARBON DIOXIDE LEVEL 31 MMOL/L (20-31); CHLORIDE LEVEL 105 MMOL/L (98-107); GLOMERULAR FILTRATION RATE > 60.0 (>32); GLUCOSE, FASTING 296 MG/DL (74-106); POTASSIUM SERUM 3.9 MMOL/L (3.5-5.1); SODIUM LEVEL 142 MMOL/L (136-145)
[2024-05-01] MEDS ORDERED: FARX1TAB3 (15:38)
[2024-05-01] MEDS ORDERED: FERR324T21 (15:38)
[2024-05-01] MEDS ORDERED: GABA-1171 (15:38)
[2024-05-01] MEDS ORDERED: VALT1TAB PO (15:42)
[2024-05-01 15:45] VITALS: BP 177/78; O2SAT 98
== END 2024-05-01 16:03 | disposition home or self-care (01) ==
LOC: M ED 12:44
DX: B02.9 Zoster without complications (principal); E11.65 Type 2 diabetes mellitus with hyperglycemia; I10 Essential (primary) hypertension; E78.00 Pure hypercholesterolemia, unspecified; K21.9 Gastro-esophageal reflux disease without esophagitis; Z79.1 Long term (current) use of non-steroidal anti-inflammatories (NSAID); Z79.899 Other long term (current) drug therapy

== ENCOUNTER 2024-06-29 08:57 | Inpatient (IN) | payer MEDICARE ==
[~2024-06-29] VITALS: Ht 149.9 cm; Wt 32.3 kg
[~2024-06-29 08:57] MED LIST changes: +FARX1TAB3 PO; +FERR324T21 PO; +GABA-1171 PO; +VALT1TAB PO
[2024-06-29 12:03] LABS: BASO % 0.3 % (0.0-1.0); EOS % 0.3 % (0.0-3.0); HEMATOCRIT 49.5 % (36.0-47.0); HEMOGLOBIN 16.4 g/dl (12.0-15.5); LYMPH # 0.7 10^3/uL (1.5-5.0); LYMPH % 10.5 % (24.0-44.0); MEAN CORPUSCULAR HEMOGLOBIN 33.5 pg (27.0-33.0); MEAN CORPUSCULAR HGB CONC 33.1 g/dl (32.0-36.5); MONO # 0.4 10^3/uL (0.0-0.8); MONO % 6.8 % (2.0-8.0); NEUTROPHILS # 5.3 10^3/uL (1.5-8.5); NEUTROPHILS % 81.2 % (36.0-66.0); PLATELET COUNT, AUTOMATED 232 10^3/uL (150-450); WHITE BLOOD COUNT 6.5 10^3/uL (4.0-10.0)
[2024-06-29 12:27] LABS: BLOOD UREA NITROGEN 18 MG/DL (9-23); CALCIUM LEVEL 9.8 MG/DL (8.3-10.6); CARBON DIOXIDE LEVEL 33 MMOL/L (20-31); CHLORIDE LEVEL 105 MMOL/L (98-107); CREATININE FOR GFR 0.42 MG/DL (0.55-1.30); GLOMERULAR FILTRATION RATE > 60.0 (>32); GLUCOSE, FASTING 119 MG/DL (74-106); SODIUM LEVEL 141 MMOL/L (136-145)
[2024-06-29] MEDS ORDERED: hydrALAZINE 20MG/ML 1ML VIAL IV STA (15:00)
[2024-06-29] MEDS: hydrALAZINE 20MG/ML 1ML VIAL IV STA (15:11)
[2024-06-29] MEDS ORDERED: THERTAB52 PO (15:22)
[2024-06-29] MEDS ORDERED: POTA10CA70 PO (15:22)
[2024-06-29] MEDS ORDERED: HOME MED LIST COMPLETE! XX SCH (15:25)
[2024-06-29] MEDS: METOPROLOL TART 50 MG TAB PO SCH (15:55)
[2024-06-29] MEDS: GABAPENTIN 100 MG CAP PO SCH (15:55)
[2024-06-29] MEDS ORDERED: GLUCOSE 4 GM CHEW PO PRN (16:10)
[2024-06-29] MEDS ORDERED: MORPHINE 2 MG/ML 1ML VIAL IV PRN (16:10)
[2024-06-29] MEDS ORDERED: ACETAMINOPHEN *IV* 500 MG in IV 1 EA IV PRN (16:10)
[2024-06-29] MEDS ORDERED: DEXTROSE 50% 50ML SYRINGE IV PRN (16:10)
[2024-06-29] MEDS ORDERED: GLUCAGON INJ 1MG VIAL SC PRN (16:10)
[2024-06-29] MEDS ORDERED: MIDAZOLAM INJ 2MG/2ML VIAL As Ordered ONE (18:57)
[2024-06-29] MEDS ORDERED: fentaNYL 100 MCG/2 ML INJECTION As Ordered ONE (18:57)
[2024-06-29] MEDS ORDERED: ONDANSETRON 4MG 2ML VIAL As Ordered ONE (18:57)
[2024-06-29] MEDS ORDERED: SUGAMMADEX SODIUM 500 MG/5 ML VIAL (BRIDION) As Ordered ONE (18:57)
[2024-06-29] MEDS ORDERED: propofoL 200 MG/20 ML VIAL As Ordered ONE (18:57)
[2024-06-29] MEDS ORDERED: ROCURONIUM BROMIDE 50MG/5ML VIAL As Ordered ONE (18:57)
[2024-06-29] MEDS ORDERED: LIDOCAINE 2% 100MG/5ML SDV (FOR ANES.) As Ordered ONE (18:57)
[2024-06-29] MEDS ORDERED: hydrALAZINE 20MG/ML 1ML VIAL IV PRN (19:00)
[2024-06-29] MEDS: ceFAZolin 2 GM/D5W 50 ML IV BAG As Ordered ONE (19:04)
[2024-06-29] MEDS: TRANEXAMIC ACID 100 MG/ML 10ML VIAL As Ordered ONE (19:10)
[2024-06-29] MEDS ORDERED: PHENYLephrine 500MCG 5ML (100MCG/ML) SYRINGE As Ordered ONE (19:14)
[2024-06-29] MEDS ORDERED: METOCLOPRAMIDE INJ 10MG/2ML VIAL IV PRN (20:15)
[2024-06-29] MEDS ORDERED: diphenhydrAMINE 50MG/ML VIAL IV PRN (20:15)
[2024-06-29] MEDS ORDERED: ONDANSETRON 4MG 2ML VIAL IV PRN (20:15)
[2024-06-29] MEDS ORDERED: oxyCODONE 5MG TAB PO PRN (20:15)
[2024-06-29] MEDS: LR 1,000 ML IV SCH (20:15)
[2024-06-29] MEDS ORDERED: MEPERIDINE 25 MG/ML 1ML VIAL IV PRN (20:15)
[2024-06-29] MEDS ORDERED: HYDROMORPHONE HCL 0.5 MG/ 0.5 ML SYRINGE IV PRN (20:15)
[2024-06-29] MEDS ORDERED: METOPROLOL 5 MG/5 ML VIAL IV PRN (20:15)
[2024-06-29] MEDS ORDERED: fentaNYL 100 MCG/2 ML INJECTION IV PRN (20:15)
[2024-06-29] MEDS ORDERED: HEPARIN SOD (PORCINE) 5000UNITS/ML 1ML VIAL/SYRINGE SQ SCH (21:00)
[2024-06-29 21:10] VITALS: BP 121/59; TEMP 97.9; O2SAT 93
[2024-06-29 21:40] VITALS: BP 134/65; TEMP 97.9; O2SAT 94
[2024-06-29 22:06] VITALS: BP 117/57; TEMP 97.4; O2SAT 93
[2024-06-29] MEDS: INSULIN LISPRO (NovoLOG) PER UNIT SC SCH (22:06)
[2024-06-29 23:03] VITALS: BP 139/63; TEMP 97.8; O2SAT 94
[2024-06-29 23:58] VITALS: BP 138/62; TEMP 97.5; O2SAT 97
[2024-06-30] VITALS (9 sets, daily range): BP systolic 133–192; BP diastolic 64–82; TEMP 97.4–98; O2SAT 92–100
[2024-06-30] MEDS: LR 1,000 ML IV SCH (00:28)
[2024-06-30] MEDS: METOPROLOL TART 50 MG TAB PO SCH (05:35)
[2024-06-30] MEDS ORDERED: DEXTROSE 50% 50ML SYRINGE IV PRN (07:55)
[2024-06-30] MEDS ORDERED: GLUCOSE 4 GM CHEW PO PRN (07:55)
[2024-06-30] MEDS ORDERED: HEPARIN SOD (PORCINE) 5000UNITS/ML 1ML VIAL/SYRINGE SQ SCH (09:00)
[2024-06-30] MEDS: LOSARTAN 50MG TABLET PO SCH (09:21)
[2024-06-30] MEDS: ASPIRIN 81MG ENTERIC TABLET PO SCH (09:21)
[2024-06-30] MEDS: GABAPENTIN 100 MG CAP PO SCH (09:22)
[2024-06-30] MEDS: INSULIN LISPRO (NovoLOG) PER UNIT SC SCH (13:08)
[2024-07-01 01:02] VITALS: BP 178/76
[2024-07-01 04:21] VITALS: BP 160/82; TEMP 97.7; O2SAT 98
[2024-07-01 06:45] LABS: BASO % 0.3 % (0.0-1.0); EOS # 0.1 10^3/uL (0.0-0.5); EOS % 1.2 % (0.0-3.0); LYMPH # 0.8 10^3/uL (1.5-5.0); LYMPH % 12.3 % (24.0-44.0); MEAN CORPUSCULAR HEMOGLOBIN 33.6 pg (27.0-33.0); MEAN CORPUSCULAR HGB CONC 32.8 g/dl (32.0-36.5); MEAN CORPUSCULAR VOLUME 102.4 fl (80.0-96.0); MONO # 0.7 10^3/uL (0.0-0.8); MONO % 10.8 % (2.0-8.0); NEUTROPHILS # 4.9 10^3/uL (1.5-8.5); NEUTROPHILS % 74.5 % (36.0-66.0); PLATELET COUNT, AUTOMATED 205 10^3/uL (150-450); RED BLOOD COUNT 3.75 10^6/uL (4.00-5.40); WHITE BLOOD COUNT 6.6 10^3/uL (4.0-10.0)
[2024-07-01 06:58] LABS: HEMATOCRIT 38.4 % (36.0-47.0); HEMOGLOBIN 12.6 g/dl (12.0-15.5)
[2024-07-01 07:05] LABS: BLOOD UREA NITROGEN 24 MG/DL (9-23); CALCIUM LEVEL 8.4 MG/DL (8.3-10.6); CARBON DIOXIDE LEVEL 28 MMOL/L (20-31); CHLORIDE LEVEL 109 MMOL/L (98-107); CREATININE FOR GFR 0.35 MG/DL (0.55-1.30); GLOMERULAR FILTRATION RATE > 60.0 (>32); GLUCOSE, FASTING 145 MG/DL (74-106); POTASSIUM SERUM 3.5 MMOL/L (3.5-5.1); SODIUM LEVEL 145 MMOL/L (136-145)
[2024-07-01 08:00] VITALS: BP 163/75; TEMP 97.9; O2SAT 97
[2024-07-01 12:00] VITALS: BP 164/74; TEMP 97.7; O2SAT 97
[2024-07-01 16:30] VITALS: BP 160/72; TEMP 97.7; O2SAT 97
[2024-07-01] MEDS: QUEtiapine FUMARATE 12.5 MG HALF-TAB PO PRN (20:50)
[2024-07-01 21:00] VITALS: BP 158/70; TEMP 97.7; O2SAT 96
[2024-07-02] VITALS (8 sets, daily range): BP systolic 127–165; BP diastolic 53–81; TEMP 97.3–98.4; O2SAT 95–98
[2024-07-02 06:14] LABS: BASO % 0.4 % (0.0-1.0); EOS # 0.1 10^3/uL (0.0-0.5); EOS % 1.8 % (0.0-3.0); HEMATOCRIT 35.1 % (36.0-47.0); HEMOGLOBIN 11.5 g/dl (12.0-15.5); LYMPH # 0.9 10^3/uL (1.5-5.0); MEAN CORPUSCULAR HEMOGLOBIN 33.7 pg (27.0-33.0); MEAN CORPUSCULAR HGB CONC 32.8 g/dl (32.0-36.5); MEAN CORPUSCULAR VOLUME 102.9 fl (80.0-96.0); MONO # 0.4 10^3/uL (0.0-0.8); MONO % 7.7 % (2.0-8.0); NEUTROPHILS # 3.7 10^3/uL (1.5-8.5); NEUTROPHILS % 72.1 % (36.0-66.0); PLATELET COUNT, AUTOMATED 196 10^3/uL (150-450); RED BLOOD COUNT 3.41 10^6/uL (4.00-5.40); WHITE BLOOD COUNT 5.1 10^3/uL (4.0-10.0)
[2024-07-02 06:29] LABS: BLOOD UREA NITROGEN 22 MG/DL (9-23); CALCIUM LEVEL 8.7 MG/DL (8.3-10.6); CARBON DIOXIDE LEVEL 32 MMOL/L (20-31); CHLORIDE LEVEL 109 MMOL/L (98-107); CREATININE FOR GFR 0.35 MG/DL (0.55-1.30); GLOMERULAR FILTRATION RATE > 60.0 (>32); GLUCOSE, FASTING 138 MG/DL (74-106); POTASSIUM SERUM 3.3 MMOL/L (3.5-5.1); SODIUM LEVEL 145 MMOL/L (136-145)
[2024-07-02] MEDS: POTASSIUM CHLORIDE 10MEQ SR TABLET PO SCH (09:30)
[2024-07-02 09:51] LABS: MAGNESIUM LEVEL 1.9 MG/DL (1.8-2.4)
[2024-07-02] MEDS: ACETAMINOPHEN 500 MG TAB PO PRN (20:21)
[2024-07-02] MEDS: LEVEMIR (INSULIN DETEMIR) 1 UNITS/0.01ML SC SCH (20:22)
[2024-07-03] VITALS (7 sets, daily range): BP systolic 135–169; BP diastolic 58–88; TEMP 97.5–98.6; O2SAT 96–98
[2024-07-03 06:01] LABS: BASO % 0.7 % (0.0-1.0); EOS # 0.1 10^3/uL (0.0-0.5); EOS % 2.8 % (0.0-3.0); HEMATOCRIT 35.3 % (36.0-47.0); HEMOGLOBIN 11.6 g/dl (12.0-15.5); LYMPH % 22.7 % (24.0-44.0); MEAN CORPUSCULAR HGB CONC 32.9 g/dl (32.0-36.5); MEAN CORPUSCULAR VOLUME 103.5 fl (80.0-96.0); MONO # 0.4 10^3/uL (0.0-0.8); MONO % 8.7 % (2.0-8.0); NEUTROPHILS # 2.7 10^3/uL (1.5-8.5); NEUTROPHILS % 64.6 % (36.0-66.0); PLATELET COUNT, AUTOMATED 199 10^3/uL (150-450); RED BLOOD COUNT 3.41 10^6/uL (4.00-5.40); WHITE BLOOD COUNT 4.2 10^3/uL (4.0-10.0)
[2024-07-03 06:25] LABS: BLOOD UREA NITROGEN 14 MG/DL (9-23); CALCIUM LEVEL 8.8 MG/DL (8.3-10.6); CARBON DIOXIDE LEVEL 32 MMOL/L (20-31); CHLORIDE LEVEL 109 MMOL/L (98-107); CREATININE FOR GFR 0.36 MG/DL (0.55-1.30); GLOMERULAR FILTRATION RATE > 60.0 (>32); GLUCOSE, FASTING 104 MG/DL (74-106); POTASSIUM SERUM 4.1 MMOL/L (3.5-5.1); SODIUM LEVEL 144 MMOL/L (136-145)
[2024-07-04 00:21] VITALS: BP 161/66; TEMP 97.9; O2SAT 96
[2024-07-04 04:37] VITALS: BP 137/56; TEMP 97.9; O2SAT 98
[2024-07-04 06:18] LABS: BASO % 0.8 % (0.0-1.0); EOS # 0.1 10^3/uL (0.0-0.5); EOS % 2.1 % (0.0-3.0); HEMATOCRIT 35.6 % (36.0-47.0); HEMOGLOBIN 11.6 g/dl (12.0-15.5); LYMPH # 0.9 10^3/uL (1.5-5.0); LYMPH % 17.9 % (24.0-44.0); MEAN CORPUSCULAR HGB CONC 32.6 g/dl (32.0-36.5); MEAN CORPUSCULAR VOLUME 104.4 fl (80.0-96.0); MONO # 0.5 10^3/uL (0.0-0.8); MONO % 8.8 % (2.0-8.0); NEUTROPHILS # 3.6 10^3/uL (1.5-8.5); NEUTROPHILS % 69.3 % (36.0-66.0); PLATELET COUNT, AUTOMATED 212 10^3/uL (150-450); RED BLOOD COUNT 3.41 10^6/uL (4.00-5.40); WHITE BLOOD COUNT 5.2 10^3/uL (4.0-10.0)
[2024-07-04 06:58] LABS: BLOOD UREA NITROGEN 22 MG/DL (9-23); CALCIUM LEVEL 8.8 MG/DL (8.3-10.6); CARBON DIOXIDE LEVEL 31 MMOL/L (20-31); CHLORIDE LEVEL 107 MMOL/L (98-107); CREATININE FOR GFR 0.41 MG/DL (0.55-1.30); GLOMERULAR FILTRATION RATE > 60.0 (>32); GLUCOSE, FASTING 156 MG/DL (74-106); SODIUM LEVEL 140 MMOL/L (136-145)
[2024-07-04 07:40] VITALS: BP 174/85; TEMP 97.9; O2SAT 97
[2024-07-04 07:45] VITALS: BP 174/85
[2024-07-04] MEDS ORDERED: ASPI-527 PO (09:02)
[2024-07-04] MEDS ORDERED: QUET1TAB17 PO (09:02)
== END 2024-07-04 11:34 | DRG 480 ==
LOC: M ED 08:57 → M ED INP 15:06 → M PCU 21:12 → M MSPAV 06-30 22:53
PROVIDERS: ADMIT Student in an Organized Health Care Education/Training Program; ATTEND Hospitalist
PROC: 0QS704Z Reposition Left Upper Femur with Internal Fixation Device, Open Approach (ICD-10-PCS; principal; 2024-06-29 18:00)
DX: S72.142A Displaced intertrochanteric fracture of left femur, initial encounter for closed fracture (principal); E43 Unspecified severe protein-calorie malnutrition; Z68.1 Body mass index [BMI] 19.9 or less, adult; I10 Essential (primary) hypertension; F03.90 Unspecified dementia, unspecified severity, without behavioral disturbance, psychotic disturbance, mood disturbance, and anxiety; E11.9 Type 2 diabetes mellitus without complications; E87.6 Hypokalemia; Z79.899 Other long term (current) drug therapy; Z79.82 Long term (current) use of aspirin; Z66 Do not resuscitate; W18.30XA Fall on same level, unspecified, initial encounter; Y92.009 Unspecified place in unspecified non-institutional (private) residence as the place of occurrence of the external cause

== ENCOUNTER → 2024-07-07 | Outpatient (REF) ==
[~2024-07-07] MED LIST changes: +ASPI-527 PO; +POTA10CA70 PO; +QUET1TAB17 PO; +THERTAB52 PO
[2024-07-07 08:44] LABS: HEMATOCRIT 37.8 % (36.0-47.0); HEMOGLOBIN 11.8 g/dl (12.0-15.5); MEAN CORPUSCULAR HEMOGLOBIN 33.3 pg (27.0-33.0); MEAN CORPUSCULAR HGB CONC 31.2 g/dl (32.0-36.5); MEAN CORPUSCULAR VOLUME 106.8 fl (80.0-96.0); PLATELET COUNT, AUTOMATED 255 10^3/uL (150-450); RED BLOOD COUNT 3.54 10^6/uL (4.00-5.40); WHITE BLOOD COUNT 4.6 10^3/uL (4.0-10.0)
[2024-07-07 09:01] LABS: HEMOGLOBIN A1c 7.5 % (4.0-6.0)
[2024-07-07 09:08] LABS: BLOOD UREA NITROGEN 31 MG/DL (9-23); CALCIUM LEVEL 8.6 MG/DL (8.3-10.6); CARBON DIOXIDE LEVEL 31 MMOL/L (20-31); CHLORIDE LEVEL 110 MMOL/L (98-107); CREATININE FOR GFR 0.39 MG/DL (0.55-1.30); GLOMERULAR FILTRATION RATE > 60.0 (>32); GLUCOSE, FASTING 136 MG/DL (74-106); POTASSIUM SERUM 3.9 MMOL/L (3.5-5.1); SODIUM LEVEL 144 MMOL/L (136-145)
== END ==
PROVIDERS: ATTEND Physician Assistant
DX: I10 Essential (primary) hypertension (principal)

== ENCOUNTER → 2024-07-10 | Outpatient (CLI) | payer MEDICARE | LOC: M SOG 07:18 | PROVIDERS: ATTEND Physician Assistant | DX: S72.002D Fracture of unspecified part of neck of left femur, subsequent encounter for closed fracture with routine healing (principal) ==

== ENCOUNTER → 2024-07-14 | Outpatient (REF) ==
[2024-07-14 10:08] LABS: HEMATOCRIT 42.1 % (36.0-47.0); HEMOGLOBIN 13.4 g/dl (12.0-15.5); MEAN CORPUSCULAR HEMOGLOBIN 34.1 pg (27.0-33.0); MEAN CORPUSCULAR HGB CONC 31.8 g/dl (32.0-36.5); MEAN CORPUSCULAR VOLUME 107.1 fl (80.0-96.0); PLATELET COUNT, AUTOMATED 256 10^3/uL (150-450); RED BLOOD COUNT 3.93 10^6/uL (4.00-5.40); WHITE BLOOD COUNT 5.9 10^3/uL (4.0-10.0)
[2024-07-14 10:52] LABS: BLOOD UREA NITROGEN 24 MG/DL (9-23); CALCIUM LEVEL 9.2 MG/DL (8.3-10.6); CARBON DIOXIDE LEVEL 32 MMOL/L (20-31); CHLORIDE LEVEL 108 MMOL/L (98-107); CREATININE FOR GFR 0.39 MG/DL (0.55-1.30); GLOMERULAR FILTRATION RATE > 60.0 (>32); GLUCOSE, FASTING 161 MG/DL (74-106); POTASSIUM SERUM 3.9 MMOL/L (3.5-5.1); SODIUM LEVEL 149 MMOL/L (136-145)
== END ==
PROVIDERS: ATTEND Physician Assistant
DX: I10 Essential (primary) hypertension (principal)

== ENCOUNTER → 2024-07-15 | Outpatient (REF) ==
[2024-07-15 14:59] LABS: BLOOD UREA NITROGEN 27 MG/DL (9-23); CALCIUM LEVEL 8.9 MG/DL (8.3-10.6); CARBON DIOXIDE LEVEL 27 MMOL/L (20-31); CHLORIDE LEVEL 105 MMOL/L (98-107); CREATININE FOR GFR 0.34 MG/DL (0.55-1.30); GLOMERULAR FILTRATION RATE > 60.0 (>32); GLUCOSE, FASTING 354 MG/DL (74-106); POTASSIUM SERUM 4.5 MMOL/L (3.5-5.1); SODIUM LEVEL 138 MMOL/L (136-145)
== END ==
PROVIDERS: ATTEND Physician Assistant
DX: E86.0 Dehydration (principal)

== ENCOUNTER → 2024-07-17 | Outpatient (REF) ==
[2024-07-17 14:46] LABS: BLOOD UREA NITROGEN 28 MG/DL (9-23); CALCIUM LEVEL 9.3 MG/DL (8.3-10.6); CARBON DIOXIDE LEVEL 26 MMOL/L (20-31); CHLORIDE LEVEL 102 MMOL/L (98-107); CREATININE FOR GFR 0.35 MG/DL (0.55-1.30); GLOMERULAR FILTRATION RATE > 60.0 (>32); GLUCOSE, FASTING 257 MG/DL (74-106); POTASSIUM SERUM 5.5 MMOL/L (3.5-5.1); SODIUM LEVEL 139 MMOL/L (136-145)
== END ==
PROVIDERS: ATTEND Physician Assistant
DX: E86.0 Dehydration (principal)

== ENCOUNTER → 2024-08-14 | Outpatient (CLI) | payer MEDICARE | LOC: M SOG 08:06 | PROVIDERS: ATTEND Physician Assistant | DX: S72.002A Fracture of unspecified part of neck of left femur, initial encounter for closed fracture (principal); Y93.9 Activity, unspecified; Y92.9 Unspecified place or not applicable ==

== ENCOUNTER → 2024-08-25 | Outpatient (REF) | PROVIDERS: ATTEND Internal Medicine | DX: I48.91 Unspecified atrial fibrillation (principal); Z53.9 Procedure and treatment not carried out, unspecified reason ==

== ENCOUNTER → 2024-09-24 | Outpatient (REF) | payer MEDICARE ==
[2024-09-24 10:04] LABS: HEMATOCRIT 47.8 % (36.0-47.0); MEAN CORPUSCULAR HEMOGLOBIN 30.1 pg (27.0-33.0); MEAN CORPUSCULAR HGB CONC 31.4 g/dl (32.0-36.5); MEAN CORPUSCULAR VOLUME 95.8 fl (80.0-96.0); PLATELET COUNT, AUTOMATED 305 10^3/uL (150-450); RED BLOOD COUNT 4.99 10^6/uL (4.00-5.40); WHITE BLOOD COUNT 7.6 10^3/uL (4.0-10.0)
[2024-09-24 10:12] LABS: BLOOD UREA NITROGEN 28 MG/DL (9-23); CALCIUM LEVEL 9.3 MG/DL (8.3-10.6); CARBON DIOXIDE LEVEL 29 MMOL/L (20-31); CHLORIDE LEVEL 102 MMOL/L (98-107); CREATININE FOR GFR 0.41 MG/DL (0.55-1.30); GLOMERULAR FILTRATION RATE > 60.0 (>32); GLUCOSE, FASTING 164 MG/DL (74-106); POTASSIUM SERUM 4.7 MMOL/L (3.5-5.1); SODIUM LEVEL 141 MMOL/L (136-145)
== END ==
PROVIDERS: ATTEND Internal Medicine
DX: I10 Essential (primary) hypertension (principal)

== ENCOUNTER → 2024-09-25 | Outpatient (CLI) | payer MEDICARE | LOC: M SOG 07:54 | PROVIDERS: ATTEND Physician Assistant | DX: S72.002A Fracture of unspecified part of neck of left femur, initial encounter for closed fracture (principal); Y93.9 Activity, unspecified; Y92.9 Unspecified place or not applicable ==

== ENCOUNTER → 2024-10-17 | Outpatient (REF) | payer MEDICARE | PROVIDERS: ATTEND Internal Medicine | DX: R05.9 Cough, unspecified (principal); R91.8 Other nonspecific abnormal finding of lung field; R41.0 Disorientation, unspecified ==

== ENCOUNTER → 2024-10-17 | Outpatient (REF) | payer MEDICARE ==
[2024-10-17 08:35] LABS: HEMATOCRIT 48.3 % (36.0-47.0); HEMOGLOBIN 14.7 g/dl (12.0-15.5); MEAN CORPUSCULAR HEMOGLOBIN 28.9 pg (27.0-33.0); MEAN CORPUSCULAR HGB CONC 30.4 g/dl (32.0-36.5); MEAN CORPUSCULAR VOLUME 94.9 fl (80.0-96.0); PLATELET COUNT, AUTOMATED 253 10^3/uL (150-450); RED BLOOD COUNT 5.09 10^6/uL (4.00-5.40); WHITE BLOOD COUNT 16.6 10^3/uL (4.0-10.0)
[2024-10-17 08:59] LABS: BLOOD UREA NITROGEN 27 MG/DL (9-23); CALCIUM LEVEL 9.1 MG/DL (8.3-10.6); CARBON DIOXIDE LEVEL 33 MMOL/L (20-31); CHLORIDE LEVEL 103 MMOL/L (98-107); CREATININE FOR GFR 0.66 MG/DL (0.55-1.30); GLOMERULAR FILTRATION RATE > 60.0 (>32); GLUCOSE, FASTING 203 MG/DL (74-106); POTASSIUM SERUM 4.8 MMOL/L (3.5-5.1); SODIUM LEVEL 141 MMOL/L (136-145)
== END ==
PROVIDERS: ATTEND Physician Assistant
DX: R41.0 Disorientation, unspecified (principal)

== ENCOUNTER → 2024-10-20 | Outpatient (REF) | payer MEDICARE ==
[2024-10-20 11:00] LABS: HEMATOCRIT 49.7 % (36.0-47.0); HEMOGLOBIN 14.6 g/dl (12.0-15.5); MEAN CORPUSCULAR HEMOGLOBIN 28.3 pg (27.0-33.0); MEAN CORPUSCULAR HGB CONC 29.4 g/dl (32.0-36.5); MEAN CORPUSCULAR VOLUME 96.3 fl (80.0-96.0); PLATELET COUNT, AUTOMATED 277 10^3/uL (150-450); RED BLOOD COUNT 5.16 10^6/uL (4.00-5.40); WHITE BLOOD COUNT 12.6 10^3/uL (4.0-10.0)
[2024-10-20 11:08] LABS: BLOOD UREA NITROGEN 25 MG/DL (9-23); CALCIUM LEVEL 8.8 MG/DL (8.3-10.6); CARBON DIOXIDE LEVEL 28 MMOL/L (20-31); CHLORIDE LEVEL 105 MMOL/L (98-107); CREATININE FOR GFR 0.54 MG/DL (0.55-1.30); GLOMERULAR FILTRATION RATE > 60.0 (>32); GLUCOSE, FASTING 230 MG/DL (74-106); POTASSIUM SERUM 4.3 MMOL/L (3.5-5.1); SODIUM LEVEL 146 MMOL/L (136-145)
== END ==
PROVIDERS: ATTEND Physician Assistant
DX: D72.829 Elevated white blood cell count, unspecified (principal)

== ENCOUNTER → 2024-10-22 | Outpatient (REF) | payer MEDICARE ==
[2024-10-22 13:55] LABS: BLOOD UREA NITROGEN 23 MG/DL (9-23); CALCIUM LEVEL 8.8 MG/DL (8.3-10.6); CARBON DIOXIDE LEVEL 29 MMOL/L (20-31); CHLORIDE LEVEL 104 MMOL/L (98-107); CREATININE FOR GFR 0.46 MG/DL (0.55-1.30); GLOMERULAR FILTRATION RATE > 60.0 (>32); GLUCOSE, FASTING 275 MG/DL (74-106); POTASSIUM SERUM 4.9 MMOL/L (3.5-5.1); SODIUM LEVEL 144 MMOL/L (136-145)
== END ==
PROVIDERS: ATTEND Physician Assistant
DX: E86.0 Dehydration (principal)

== ENCOUNTER → 2024-10-27 | Outpatient (REF) | payer MEDICARE ==
[2024-10-27 12:01] LABS: BASO % 0.4 % (0.0-1.0); EOS # 0.1 10^3/uL (0.0-0.5); EOS % 0.6 % (0.0-3.0); HEMATOCRIT 44.6 % (36.0-47.0); HEMOGLOBIN 13.6 g/dl (12.0-15.5); LYMPH # 0.8 10^3/uL (1.5-5.0); LYMPH % 9.2 % (24.0-44.0); MEAN CORPUSCULAR HEMOGLOBIN 29.1 pg (27.0-33.0); MEAN CORPUSCULAR HGB CONC 30.5 g/dl (32.0-36.5); MEAN CORPUSCULAR VOLUME 95.3 fl (80.0-96.0); MONO # 0.5 10^3/uL (0.0-0.8); MONO % 5.8 % (2.0-8.0); NEUTROPHILS # 7.4 10^3/uL (1.5-8.5); NEUTROPHILS % 83.3 % (36.0-66.0); PLATELET COUNT, AUTOMATED 289 10^3/uL (150-450); RED BLOOD COUNT 4.68 10^6/uL (4.00-5.40); WHITE BLOOD COUNT 8.9 10^3/uL (4.0-10.0)
[2024-10-27 12:14] LABS: HEMOGLOBIN A1c 8.9 % (4.0-6.0)
[2024-10-27 12:27] LABS: ALBUMIN 2.3 G/DL (3.2-5.2); ALKALINE PHOSPHATASE 137 U/L (35-104); ALT/SGPT 45 U/L (7.0-40); AST/SGOT 41 U/L (<34); BILIRUBIN,TOTAL 0.3 MG/DL (0.3-1.2); BLOOD UREA NITROGEN 19 MG/DL (9-23); CALCIUM LEVEL 8.9 MG/DL (8.3-10.6); CARBON DIOXIDE LEVEL 32 MMOL/L (20-31); CHLORIDE LEVEL 101 MMOL/L (98-107); GLOMERULAR FILTRATION RATE > 60.0 (>32); GLUCOSE, FASTING 381 MG/DL (74-106); POTASSIUM SERUM 4.6 MMOL/L (3.5-5.1); SODIUM LEVEL 143 MMOL/L (136-145); THYROID STIMULATING HORMONE 2.055 uIU/ML (0.55-4.78); THYROXINE (T4) 5.4 UG/DL (4.5-10.9); TOTAL PROTEIN 6.2 G/DL (5.7-8.2)
== END ==
PROVIDERS: ATTEND Internal Medicine
DX: I48.91 Unspecified atrial fibrillation (principal); Z79.899 Other long term (current) drug therapy

== ENCOUNTER → 2024-11-03 | Outpatient (REF) | payer MEDICARE ==
[2024-11-03 10:46] LABS: HEMATOCRIT 44.7 % (36.0-47.0); HEMOGLOBIN 13.3 g/dl (12.0-15.5); MEAN CORPUSCULAR HEMOGLOBIN 28.2 pg (27.0-33.0); MEAN CORPUSCULAR HGB CONC 29.8 g/dl (32.0-36.5); MEAN CORPUSCULAR VOLUME 94.9 fl (80.0-96.0); PLATELET COUNT, AUTOMATED 307 10^3/uL (150-450); RED BLOOD COUNT 4.71 10^6/uL (4.00-5.40); WHITE BLOOD COUNT 8.9 10^3/uL (4.0-10.0)
[2024-11-03 11:24] LABS: BLOOD UREA NITROGEN 22 MG/DL (9-23); CALCIUM LEVEL 8.9 MG/DL (8.3-10.6); CARBON DIOXIDE LEVEL 33 MMOL/L (20-31); CHLORIDE LEVEL 102 MMOL/L (98-107); CREATININE FOR GFR 0.64 MG/DL (0.55-1.30); GLOMERULAR FILTRATION RATE > 60.0 (>32); GLUCOSE, FASTING 252 MG/DL (74-106); POTASSIUM SERUM 4.4 MMOL/L (3.5-5.1); SODIUM LEVEL 142 MMOL/L (136-145)
== END ==
PROVIDERS: ATTEND Internal Medicine
DX: E11.65 Type 2 diabetes mellitus with hyperglycemia (principal)

== ENCOUNTER → 2024-12-11 | Outpatient (CLI) | payer MEDICARE | LOC: M SOG 07:56 | PROVIDERS: ATTEND Physician Assistant | DX: S72.002A Fracture of unspecified part of neck of left femur, initial encounter for closed fracture (principal) ==

== ENCOUNTER → 2024-12-24 | Outpatient (REF) | payer MEDICARE ==
[2024-12-24 08:50] LABS: HEMATOCRIT 43.8 % (36.0-47.0); HEMOGLOBIN 13.4 g/dl (12.0-15.5); MEAN CORPUSCULAR HEMOGLOBIN 29.3 pg (27.0-33.0); MEAN CORPUSCULAR HGB CONC 30.6 g/dl (32.0-36.5); MEAN CORPUSCULAR VOLUME 95.8 fl (80.0-96.0); PLATELET COUNT, AUTOMATED 251 10^3/uL (150-450); RED BLOOD COUNT 4.57 10^6/uL (4.00-5.40); WHITE BLOOD COUNT 6.1 10^3/uL (4.0-10.0)
[2024-12-24 09:16] LABS: BLOOD UREA NITROGEN 29 MG/DL (9-23); CALCIUM LEVEL 9.1 MG/DL (8.3-10.6); CARBON DIOXIDE LEVEL 31 MMOL/L (20-31); CHLORIDE LEVEL 104 MMOL/L (98-107); CREATININE FOR GFR 0.55 MG/DL (0.55-1.30); GLOMERULAR FILTRATION RATE > 60.0 (>32); GLUCOSE, FASTING 142 MG/DL (74-106); POTASSIUM SERUM 4.3 MMOL/L (3.5-5.1); SODIUM LEVEL 145 MMOL/L (136-145)
== END ==
PROVIDERS: ATTEND Internal Medicine
DX: I10 Essential (primary) hypertension (principal)

== ENCOUNTER → 2025-01-05 | Outpatient (REF) | payer MEDICARE | PROVIDERS: ATTEND Physician Assistant | DX: R60.9 Edema, unspecified (principal) ==

== ENCOUNTER → 2025-01-07 | Outpatient (REF) | payer MEDICARE ==
[2025-01-07 08:30] LABS: HEMATOCRIT 44.8 % (36.0-47.0); HEMOGLOBIN 13.5 g/dl (12.0-15.5); MEAN CORPUSCULAR HGB CONC 30.1 g/dl (32.0-36.5); MEAN CORPUSCULAR VOLUME 96.3 fl (80.0-96.0); PLATELET COUNT, AUTOMATED 299 10^3/uL (150-450); RED BLOOD COUNT 4.65 10^6/uL (4.00-5.40); WHITE BLOOD COUNT 7.2 10^3/uL (4.0-10.0)
[2025-01-07 09:03] LABS: BLOOD UREA NITROGEN 32 MG/DL (9-23); CALCIUM LEVEL 9.2 MG/DL (8.3-10.6); CARBON DIOXIDE LEVEL 32 MMOL/L (20-31); CHLORIDE LEVEL 102 MMOL/L (98-107); CREATININE FOR GFR 0.68 MG/DL (0.55-1.30); GLOMERULAR FILTRATION RATE > 60.0 (>32); GLUCOSE, FASTING 147 MG/DL (74-106); POTASSIUM SERUM 4.3 MMOL/L (3.5-5.1); SODIUM LEVEL 142 MMOL/L (136-145)
== END ==
PROVIDERS: ATTEND Physician Assistant
DX: R60.9 Edema, unspecified (principal)

== ENCOUNTER → 2025-01-14 | Outpatient (REF) | payer MEDICARE ==
[2025-01-14 07:47] LABS: HEMATOCRIT 42.8 % (36.0-47.0); HEMOGLOBIN 13.1 g/dl (12.0-15.5); MEAN CORPUSCULAR HEMOGLOBIN 29.6 pg (27.0-33.0); MEAN CORPUSCULAR HGB CONC 30.6 g/dl (32.0-36.5); MEAN CORPUSCULAR VOLUME 96.6 fl (80.0-96.0); PLATELET COUNT, AUTOMATED 246 10^3/uL (150-450); RED BLOOD COUNT 4.43 10^6/uL (4.00-5.40); WHITE BLOOD COUNT 5.3 10^3/uL (4.0-10.0)
[2025-01-14 08:16] LABS: BLOOD UREA NITROGEN 27 MG/DL (9-23); CALCIUM LEVEL 9.1 MG/DL (8.3-10.6); CARBON DIOXIDE LEVEL 32 MMOL/L (20-31); CHLORIDE LEVEL 106 MMOL/L (98-107); CREATININE FOR GFR 0.58 MG/DL (0.55-1.30); GLOMERULAR FILTRATION RATE > 60.0 (>32); GLUCOSE, FASTING 117 MG/DL (74-106); POTASSIUM SERUM 4.1 MMOL/L (3.5-5.1); SODIUM LEVEL 144 MMOL/L (136-145)
== END ==
PROVIDERS: ATTEND Physician Assistant
DX: R60.9 Edema, unspecified (principal)

== ENCOUNTER → 2025-01-27 | Outpatient (CLI) | payer MEDICARE | LOC: M RAD 10:50 | PROVIDERS: ATTEND Physician Assistant | DX: M79.605 Pain in left leg (principal) ==

== ENCOUNTER → 2025-01-28 | Outpatient (REF) | payer MEDICARE ==
[2025-01-28 09:01] LABS: HEMOGLOBIN A1c 6.7 % (4.0-6.0)
== END ==
PROVIDERS: ATTEND Internal Medicine
DX: I48.91 Unspecified atrial fibrillation (principal); Z79.899 Other long term (current) drug therapy

== ENCOUNTER → 2025-02-02 | Outpatient (REF) | payer MEDICARE ==
[2025-02-02 08:31] LABS: CALCIUM LEVEL 8.5 MG/DL (8.3-10.6); CREATININE FOR GFR 0.6 MG/DL (0.55-1.30); GLOMERULAR FILTRATION RATE 85.8 (>32)
== END ==
PROVIDERS: ATTEND Physician Assistant
DX: R60.9 Edema, unspecified (principal)

== ENCOUNTER → 2025-02-04 | Outpatient (REF) | payer MEDICARE | PROVIDERS: ATTEND Physician Assistant | DX: M25.571 Pain in right ankle and joints of right foot (principal); M25.572 Pain in left ankle and joints of left foot; M85.872 Other specified disorders of bone density and structure, left ankle and foot; M85.871 Other specified disorders of bone density and structure, right ankle and foot ==

== ENCOUNTER → 2025-02-09 | Outpatient (REF) | payer MEDICARE ==
[2025-02-09 09:43] LABS: BASO % 0.5 % (0.0-1.0); EOS # 0.3 10^3/uL (0.0-0.5); EOS % 4.3 % (0.0-3.0); HEMATOCRIT 46.6 % (36.0-47.0); HEMOGLOBIN 14.2 g/dl (12.0-15.5); LYMPH # 1.3 10^3/uL (1.5-5.0); LYMPH % 21.8 % (24.0-44.0); MEAN CORPUSCULAR HEMOGLOBIN 29.3 pg (27.0-33.0); MEAN CORPUSCULAR HGB CONC 30.5 g/dl (32.0-36.5); MEAN CORPUSCULAR VOLUME 96.3 fl (80.0-96.0); MONO # 0.5 10^3/uL (0.0-0.8); MONO % 7.9 % (2.0-8.0); NEUTROPHILS # 3.8 10^3/uL (1.5-8.5); PLATELET COUNT, AUTOMATED 255 10^3/uL (150-450); RED BLOOD COUNT 4.84 10^6/uL (4.00-5.40); WHITE BLOOD COUNT 5.8 10^3/uL (4.0-10.0)
[2025-02-09 09:59] LABS: URIC ACID 3.8 MG/DL (3.1-7.8)
[2025-02-09 10:03] LABS: CALCIUM LEVEL 8.9 MG/DL (8.3-10.6); CREATININE FOR GFR 0.57 MG/DL (0.55-1.30); GLOMERULAR FILTRATION RATE 86.8 (>32); POTASSIUM SERUM 4.2 MMOL/L (3.5-5.1)
== END ==
PROVIDERS: ATTEND Physician Assistant
DX: R60.9 Edema, unspecified (principal)

== ENCOUNTER → 2025-02-13 | Outpatient (CLI) | payer MEDICARE | LOC: M RAD 12:10 | PROVIDERS: ATTEND Physician Assistant | DX: M79.89 Other specified soft tissue disorders (principal); M79.661 Pain in right lower leg; M79.662 Pain in left lower leg; I70.203 Unspecified atherosclerosis of native arteries of extremities, bilateral legs ==

== ENCOUNTER → 2025-02-24 | Outpatient (REF) | payer MEDICARE | PROVIDERS: ATTEND Internal Medicine | DX: I73.9 Peripheral vascular disease, unspecified (principal); Z53.8 Procedure and treatment not carried out for other reasons ==